=== PATIENT | female | born 1940 | race Caucasian/White ===

== ENCOUNTER 2018-09-23 13:54 | Inpatient (IN) | payer OTHER ==
--- NOTE | 2018-09-23 14:24 | PDOC ---
History of Present Illness - General Stated Complaint: WEEZING Time Seen by Provider: 09/23/18 14:24 History Source: Patient Exam Limitations: No Limitations - History of Present Illness Initial Comments: 09/23/18 14:26 78 year old woman history decubitus sacral ulcer, advanced Parkinson's disease ( bedbound) presents with cough and wheeze for 2 days. The patient had a cough noted last night by who called PCP Terrell who prescribed Levaquin for concern for PNA. Today the patient was having her sacral wound redressed by nursing aid who noted that the patient was wheezing and called EMS. At bedside patient reports feeling congested and shortness of breath when lying back. The patient has not had any fever, denies production of phlegm in cough, denies chest pain, denies nausea, vomiting, diarrhea, constipation, dysuria, hematuria. Patient has had wound vac for sacral ulcer for some time and had it removed yesterday in wound clinic at this hospital, but the wound vac has not been replaced. 09/23/18 15:11 Past History - Past Medical History Allergies/Adverse Reactions: Allergies Allergy/AdvReac Type Severity Reaction Status Date / Time codeine Allergy Intermediate Itching Verified 09/23/18 14:51 Penicillins Allergy Intermediate Rash Verified 09/23/18 14:51 Home Medications: Ambulatory Orders Carbidopa/Levodopa [Rytary ER 36.25 mg-145 mg Cap] 1 each PO QID 10/22/15 Rotigotine [Neupro] 1 each TD DAILY 10/22/15 Sennosides/Docusate Sodium [Stool Softener-Laxative Tab] 1 each PO DAILY Quetiapine Fumarate [Seroquel -] 50 mg PO HS #0 tablet 10/23/15 Cefuroxime Axetil [Ceftin -] 500 mg PO BID 09/08/18 Anemia: No Asthma: No Cancer: No Cardiac Disorders: No CVA: No COPD: No CHF: No Dementia: Yes Diabetes: No GI Disorders: No Disorders: No HTN: No Hypercholesterolemia: No Liver Disease: No Seizures: No Thyroid Disease: No - Surgical History Abdominal Surgery: Yes (ovarian tumor removed 30 years ago) Appendectomy: No Cardiac Surgery: No Cholecystectomy: No Lung Surgery: No Neurologic Surgery: No Orthopedic Surgery: Yes (shobha hip replacement 2002, broken jaw , brown arm) - Immunization History Immunization Up to Date: No - Suicide/Smoking/Psychosocial Hx Smoking History: Never smoked Number of Cigarettes Smoked Daily: 0 Hx Alcohol Use: No Drug/Substance Use Hx: No Substance Use Type: None Review of Systems - Review of Systems Able to Perform ROS?: Yes Comments:: 09/23/18 14:48 GENERAL/CONSTITUTIONAL: No fever or chills. No weakness. HEAD, EYES, EARS, NOSE AND THROAT: No change in vision. No ear pain or discharge. No sore throat. CARDIOVASCULAR: No chest pain or shortness of breath RESPIRATORY: No hemoptysis. + cough, wheeze GASTROINTESTINAL: No nausea, vomiting, diarrhea or constipation. GENITOURINARY: No dysuria, frequency, or change in urination. MUSCULOSKELETAL: No joint or muscle swelling or pain. No neck or back pain. SKIN: No rash NEUROLOGIC: No headache, vertigo, loss of consciousness, or change in strength/ sensation. ENDOCRINE: No increased thirst. No abnormal weight change HEMATOLOGIC/LYMPHATIC: No anemia, easy bleeding, or history of blood clots. ALLERGIC/IMMUNOLOGIC: No hives or skin allergy. Is the patient limited [place] proficient: No *Physical Exam - Physical Exam Comments: 09/23/18 15:32 CTAB stage 4 sacral wound ED Treatment Course - LABORATORY CBC & Chemistry Diagram: 09/23/18 15:27 09/23/18 15:27 Medical Decision Making - Medical Decision Making 09/23/18 14:45 78 year old woman history decubitus sacral ulcer, advanced Parkinson's disease presents with cough and wheeze for 2 days. The patient had a cough noted last night by who called PCP Terrell who prescribed Levaquin for concern for PNA. Today the patient was having her sacral wound redressed by nursing aid who noted that the patient was wheezing and called EMS. ED Course: consider pna vs chf vs r./o acs vs arrythmia r/o PE 09/23/18 15:07 At bedside patient bp 124/66, satting ~95 on RA 09/23/18 17:19 labs within normal CXR: cardiomegaly, coarse central changes, nodular density in the L apex, atelectasis at the L base Patient down to 92 O2 4L NC placed 09/23/18 18:08 UA w/ uti dose bactrim pending CTA to r/o PE *DC/Admit/Observation/Transfer - Referrals Referrals: Xu Oden MD [Primary Care Provider] - - Patient Instructions - Post Discharge Activity
[2018-09-23] MEDS ORDERED: ALBUTEROL SO4 2.5/IPRATROPIUM 0.5 INH SOL 3 ML VIAL.NEB. NEB ONE (15:29)
[2018-09-23 15:36] LABS: BASO % 0.4 % (0-2.0); EOS % 0.4 % (0-4.5); HEMOGLOBIN 11.5 GM/dL (10.7-15.3); LYMPH % 2.3 % (8-40); MCH 30.6 pg (25.7-33.7); MCHC 32.8 g/dl (32.0-36.0); MEAN CELL VOLUME 93.5 fl (80-96); MEAN PLT VOLUME 6.7 fl (7.5-11.1); MONO % 8.7 % (3.8-10.2); NEUT % 88.2 % (42.8-82.8); PLATELET COUNT 371 K/MM3 (134-434); RBC 3.75 M/mm3 (3.60-5.2); RDW 13.5 % (11.6-15.6); WHITE BLOOD COUNT 8.1 K/mm3 (4.0-10.0)
[2018-09-23 15:49] LABS: INR 1.28 (0.83-1.09); PROTHROMBIN TIME (PATIENT) 15.2 SEC (9.7-13.0)
[2018-09-23 15:51] LABS: ACTIVATED PTT 24.1 SECONDS (25.2-36.5)
[2018-09-23 16:23] LABS: ALK PHOS 97 U/L (45-117); ANION GAP 7 MMOL/L (8-16); BILIRUBIN,TOTAL 0.4 mg/dL (0.2-1); BLOOD UREA NITROGEN 16 mg/dL (7-18); CHLORIDE 103 mmol/L (98-107); CO2 27 mmol/L (21-32); CREATININE 0.7 mg/dL (0.55-1.3); GLUCOSE,RANDOM 94 mg/dL (74-106); N-TERMINAL BNP 1036.6 pg/ml (5-450); POTASSIUM 4.8 mmol/L (3.5-5.1); SGOT/AST 25 U/L (15-37); SGPT/ALT 6 U/L (13-61); SODIUM 137 mmol/L (136-145); TOT PROT 7.4 g/dl (6.4-8.2)
[2018-09-23 16:32] LABS: EPI CELLS 2.4 /HPF (0-5/HPF); PH,URINE 6.5 (5.0-8.0); URINE APPEARANCE TURBID; URINE BACTERIA 8239.4 /hpf (NEGATIVE); URINE BILIRUBIN NEGATIVE (NEGATIVE); URINE CASTS 64 /lpf (0-8); URINE COLOR YELLOW; URINE GLUCOSE (UA) NEGATIVE (NEGATIVE); URINE KETONE TRACE (NEGATIVE); URINE LEUK ESTERASE 3+ (NEGATIVE); URINE NITRITE POSITIVE (NEGATIVE); URINE PROTEIN TRACE (NEGATIVE); URINE WBC 428 /hpf (0-5)
[2018-09-23 17:03] LABS: URINE RBC 8.1 /hpf (0-4)
--- NOTE | 2018-09-23 17:20 | PDOC ---
Documentation entered by Bisi Sandoval SCRIBE, acting as scribe for Murali Broderick MD. Murali Broderick MD: This documentation has been prepared by the Jaime shelton Amanda, SCRIBE, under my direction and personally reviewed by me in its entirety. I confirm that the documentation accurately reflects all work, treatment, procedures, and medical decision making performed by me. Attending Attestation - Resident Resident Name: Adeola Andujar - ED Attending Attestation I have performed the following: I have examined & evaluated the patient, The case was reviewed & discussed with the resident, I agree w/resident's findings & plan, Exceptions are as noted - HPI HPI: 09/23/18 15:29 The patient is a 78 year old female with a significant medical history of decubitus sacral ulcer, advanced Parkinson's disease (bedbound) who presents to the ED with cough and wheezing for 2 days. The patient states she had a cough last night, called Dr. Oden who prescribed Levaquin for concern of possible pneumonia. The patient reports shortness of breath when lying flat. She states her cough is nonproductive. The patient denies chest pain, headache and dizziness. The patient denies fever , chills, nausea, vomit, diarrhea and constipation. The patient denies dysuria, frequency, urgency and hematuria. - Physicial Exam PE: 09/23/18 15:31 GENERAL: Awake, alert, and fully oriented, in no acute distress HEAD: No signs of trauma EYES: PERRLA, EOMI, sclera anicteric, conjunctiva clear ENT: Auricles normal inspection, hearing grossly normal, nares patent, oropharynx clear without exudates. Moist mucosa NECK: Normal ROM, supple, no lymphadenopathy, JVD, or masses LUNGS: Breath sounds equal, clear to auscultation bilaterally. No wheezes, and no crackles HEART: Regular rate and rhythm, normal S1 and S2, no murmurs, rubs or gallops ABDOMEN: Soft, nontender, normoactive bowel sounds. No guarding, no rebound. No masses EXTREMITIES: Normal range of motion, no edema. No clubbing or cyanosis. No cords, erythema, or tenderness NEUROLOGICAL: Cranial nerves II-XII intact. Normal speech, normal gait. Sensation intact in upper and lower extremities. 5/5 motor strength in upper and lower extremities. No pronator drift. Finger to nose intact. Rapid alternations intact. SKIN: (+) stage 4 sacral wound c/d/i. Warm, Dry, normal turgor, no rashes or lesions noted. - Medical Decision Making 09/23/18 15:39 Vital Signs Temp Pulse Resp BP Pulse Ox 99.3 F 90 20 94/53 L 89 L 09/23/18 14:05 09/23/18 14:05 09/23/18 14:05 09/23/18 14:05 09/23/18 14:05 A portion of this note was documented by scribe services under my direction. I have reviewed the details of the note, within reason, and agree with the documentation with the following case summary and management plan written by me. Patient treated in the ED. Nursing notes are reviewed and incorporated into the medical decision-making. Vital signs reviewed. Peripheral IV access obtained by the nurse, laboratory studies are drawn and sent, reviewed and interpreted by myself. 78 year old female with Past medical history of bilateral hip replacement, Parkinson's disease and dementia, bedbound presents with cough and wheezing and difficulty breathing since yesterday. Denies sick contacts or recent travels. Denies fevers but noted that she was having chest congestion and wheezing. The patient had called the primary care physician, Dr. Oden went prescribed levofloxacin which the patient has been taking for 2 days. However, the patient's symptoms were worsening. EMS was activated and the patient's oxygenation saturation was 89%. Over here, in the emergency department, the O2 saturation is 92%. I am concerned for pneumonia. We'll child 2 nabs. Rule out influenza. Chest x-ray, sepsis workup. The patient retook her dose of Levaquin today. We'll need to admit the patient to the hospital. 09/23/18 15:59 CBC, BMP 09/23/18 15:27 CMP Lactic Acid 1.1 mmol/L (0.4-2.0) 09/23/18 15:20 Given pt is bedbound and with normal WBC, will await for chest xray. If chest xray is unremarkable, given that patient is bedbound, we should evaluate with CTA chest to r/o PE. Either way, pt should be admitted to the hospital. 09/23/18 17:11 CMP Sodium 137 mmol/L (136-145) 09/23/18 15:27 Potassium 4.8 mmol/L (3.5-5.1) 09/23/18 15:27 Chloride 103 mmol/L (98-107) 09/23/18 15:27 Carbon Dioxide 27 mmol/L (21-32) 09/23/18 15:27 Anion Gap 7 MMOL/L (8-16) L 09/23/18 15:27 BUN 16 mg/dL (7-18) 09/23/18 15:27 Creatinine 0.7 mg/dL (0.55-1.3) 09/23/18 15:27 Creat Clearance w eGFR 81.36 (>60) 09/23/18 15:27 Random Glucose 94 mg/dL (74-106) 09/23/18 15:27 Lactic Acid 1.1 mmol/L (0.4-2.0) 09/23/18 15:20 Calcium 9.0 mg/dL (8.5-10.1) 09/23/18 15:27 Total Bilirubin 0.4 mg/dL (0.2-1) 09/23/18 15:27 AST 25 U/L (15-37) 09/23/18 15:27 ALT 6 U/L (13-61) L 09/23/18 15:27 Alkaline Phosphatase 97 U/L (45-117) 09/23/18 15:27 Troponin I < 0.02 ng/ml (0.00-0.05) 09/23/18 15:27 B-Natriuretic Peptide 1036.6 pg/ml (5-450) H 09/23/18 15:27 Total Protein 7.4 g/dl (6.4-8.2) 09/23/18 15:27 Albumin 3.0 g/dl (3.4-5.0) L 09/23/18 15:27 BNP elevated. Chest xray reviewed by me, pending official radiology read. Cardiomegaly. ?Pulm vas congestion Will obtain CTA to r/o PE, but pt should be admitted for CHF workup. Will still need to consider infectious. 09/23/18 17:12 Pt signed out to oncoming ED attending Dr. Hill for further management and disposition. Heart Score/ECG Review #1 ECG reviewed & interpreted by me at: 14:40 09/23/18 16:03 NSR 88, no std/sujit, normal axis, normal intervals, QTC 457 msec
[2018-09-23] MEDS ORDERED: SULFAMETHOXAZOLE/TRIMETHOPRIM 800MG/160MG D.S. TABLET PO SCH (18:07)
--- NOTE | 2018-09-23 19:50 | PDOC ---
*Physical Exam - Vital Signs Last Vital Signs Temp Pulse Resp BP Pulse Ox 99.3 F 63 18 120/64 98 09/23/18 14:05 09/23/18 17:33 09/23/18 17:33 09/23/18 17:33 09/23/18 17:33 - Physical Exam Comments: 09/23/18 19:51 GENERAL: Awake, alert, and fully oriented, in no acute distress HEAD: No signs of trauma, normocephalic, atraumatic EYES: PERRLA, EOMI, sclera anicteric, conjunctiva clear ENT: Auricles normal inspection, hearing grossly normal, nares patent, oropharynx clear without exudates. Moist mucosa NECK: Normal ROM, supple, no lymphadenopathy, JVD, or masses LUNGS:Coarse lung sounds throughout. Diffuse rales and Diffuse exp rhonci. speaks full sentences. HEART: Regular rate and rhythm, normal S1 and S2, no murmurs, rubs or gallops, peripheral pulses normal and equal bilaterally. ABDOMEN: Soft, nontender, normoactive bowel sounds. No guarding, no rebound. No masses BACK: + Sacral ulcer stage 4 EXTREMITIES : Normal inspection, Normal range of motion, no edema. No clubbing or cyanosis. NEUROLOGICAL: Cranial nerves II through XII grossly intact. Normal speech, normal gait, no focal sensorimotor deficits SKIN: Warm, Dry, normal turgor, no rashes or lesions noted ED Treatment Course - LABORATORY CBC & Chemistry Diagram: 09/23/18 15:27 09/23/18 15:27 - ADDITIONAL ORDERS Additional order review: Laboratory Results 09/23/18 09/23/18 09/23/18 16:10 16:10 15:27 PT with INR INR PTT (Actin FS) D-Dimer 2180 H VBG pH POC VBG pCO2 POC VBG pO2 VBG HCO3 VBG O2 Sat (Avi) VBG Base Excess Sodium 137 Potassium 4.8 Chloride 103 Carbon Dioxide 27 Anion Gap 7 L BUN 16 Creatinine 0.7 Creat Clearance w eGFR 81.36 Random Glucose 94 Lactic Acid Calcium 9.0 Total Bilirubin 0.4 AST 25 ALT 6 L Alkaline Phosphatase 97 Troponin I < 0.02 B-Natriuretic Peptide 1036.6 H Total Protein 7.4 Albumin 3.0 L Urine Color Yellow Urine Appearance Turbid Urine pH 6.5 Ur Specific [place] 1.020 Urine Protein Trace Urine Glucose (UA) Negative Urine Ketones Trace H Urine Blood Negative Urine Nitrite Positive H Urine Bilirubin Negative Urine Urobilinogen 1.0 Ur Leukocyte Esterase 3+ H Urine WBC (Auto) 428 Urine RBC (Auto) 8.1 Urine Casts (Auto) 64 U Epithel Cells (Auto) 2.4 Urine Bacteria (Auto) 8239.4 09/23/18 09/23/18 09/23/18 15:20 15:20 15:20 PT with INR 15.20 H INR 1.28 H PTT (Actin FS) 24.1 L D-Dimer VBG pH Cancelled POC VBG pCO2 Cancelled POC VBG pO2 Cancelled VBG HCO3 Cancelled VBG O2 Sat (Avi) Cancelled VBG Base Excess Cancelled Sodium Potassium Chloride Carbon Dioxide Anion Gap BUN Creatinine Creat Clearance w eGFR Random Glucose Lactic Acid 1.1 Calcium Total Bilirubin AST ALT Alkaline Phosphatase Troponin I B-Natriuretic Peptide Total Protein Albumin Urine Color Urine Appearance Urine pH Ur Specific [place] Urine Protein Urine Glucose (UA) Urine Ketones Urine Blood Urine Nitrite Urine Bilirubin Urine Urobilinogen Ur Leukocyte Esterase Urine WBC (Auto) Urine RBC (Auto) Urine Casts (Auto) U Epithel Cells (Auto) Urine Bacteria (Auto) 09/23/18 15:27 RBC 3.75 MCV 93.5 MCHC 32.8 RDW 13.5 MPV 6.7 L Neutrophils % 88.2 H Lymphocytes % 2.3 L D Monocytes % 8.7 Eosinophils % 0.4 Basophils % 0.4 - RADIOLOGY Radiology Studies Ordered: 09/23/18 20:07 [facility] Name: [facility] DEPARTMENT OF RADIOLOGY Phys: Murali Broderick MD : 1940 Age: 78 Sex: F [facility] Acct: [id number] Loc: [address] Exam Date: 09/23/18 Status[place] [facility] [place] [id number] Unit Number: [id number] EXAM#: TYPE/EXAM : RESULT: [id number] CT/CHEST CTA Chest CT angiography Clinical information given : evaluate for pulmonary embolism Multiplanar imaging was performed following the intravenous bolus administration of nonionic contrast. No prior CT studies are available at this facility for direct comparison. No definite pulmonary embolus is noted. Evaluation of the bilateral lower lobe subsegmental vessels is limited due to respiratory motion artifact. An approximately 10 x 2.3 x 0.5 cm mildly hyperdense focus is seen abutting the left posterolateral border of the descending aorta suggestive of an intramural hematoma. No intimal flap or aortic lumen compromise is seen. No aortic aneurysm is seen There is no definite cardiac enlargement. A small pericardial effusion is noted. No evidence of pneumothorax, infiltrate or pleural effusion. There is mild bilateral lower lobe discoid atelectasis with mild subpleural atelectasis posteriorly. The visualized osseous structures demonstrate no gross acute pathology. No obvious endobronchial pathology is visualized. Impression: No definite CT evidence of pulmonary embolism. Evaluation of the lower lobe subsegmental vessels bilaterally is limited due to motion artifact. If clinically indicated correlate with bilateral lower extremity venous sonography. An approximately 10 x 2.3 x 0.5 cm mildly hyperdense crescentic focus is seen abutting the left posterior lateral border of the descending aorta suggestive of an intramural hematoma. Mild bilateral lower lobe discoid atelectasis. Mild bibasilar subpleural atelectasis posteriorly. Reported By: Cirilo Naqvi MD 09/23/181954 Murali Broderick Technologist: Antonio Keys Transcribed Date/Time: 09/23/181954 Barrel Inspector Tight: Cirilo Naqvi Printed Date/Time: By: - Medications Given in the ED: ED Medications Discontinued Medications Generic Name Dose Route Start Last Admin Trade Name Freq PRN Reason Stop Dose Admin Albuterol/Ipratropium 1 amp 09/23/18 15:29 09/23/18 15:35 Duoneb - NEB 09/23/18 15:30 1 amp ONCE ONE Administration Medical Decision Making - Medical Decision Making 09/23/18 19:44 78 yo F with h/o decubitus sacral ulcer, Wound vac for sacral ulcer for extended period of time and removed 09/23/18 in wound clinic at [facility], advanced Parkinson's disease (bedbound BIBEMS with cough and wheeze x 2 days. Received signout from Dr. Andujar. Patient on Levaquin for presumed PNA x 2 days. Noted to be hypoxic by EMS to 80% O2 RA. BP 94/53. Patient reports orthopnea. Physical exam coarse lung sounds throughout. Diffuse rales and Diffuse exp rhonci, received duonebs. ED course also notable for 92 % O2 4 L NC, vitals wnl , AF, CXR with cardiomegaly and coarse central changes with nodular density in L apex. Pending CTA r/o PE. Patient with elevated BNP, hypoxic, SOB. Plan to admit CHF exacerbation. 09/23/18 20:05 ED Course: Laboratory Tests 09/23/18 09/23/18 09/23/18 15:20 15:27 15:27 WBC 8.1 Hgb 11.5 Hct 35.0 Plt Count 371 BUN 16 Creatinine 0.7 Lactic Acid 1.1 Troponin I < 0.02 B-Natriuretic Peptide 1036.6 H Urine Color Urine Ketones Urine Nitrite Ur Leukocyte Esterase Urine WBC (Auto) Urine RBC (Auto) Urine Bacteria (Auto) Influenza A (Rapid) Influenza B (Rapid) 09/23/18 09/23/18 16:10 16:10 WBC Hgb Hct Plt Count BUN Creatinine Lactic Acid Troponin I B-Natriuretic Peptide Urine Color Yellow Urine Ketones Trace H Urine Nitrite Positive H Ur Leukocyte Esterase 3+ H Urine WBC (Auto) 428 Urine RBC (Auto) 8.1 Urine Bacteria (Auto) 8239.4 Influenza A (Rapid) Negative Influenza B (Rapid) Negative 09/23/18 20:08 CTA chest: Impression: No definite CT evidence of pulmonary embolism. Evaluation of the lower lobe subsegmental vessels bilaterally is limited due to motion artifact. If clinically indicated correlate with bilateral lower extremity venous sonography. An approximately 10 x 2.3 x 0.5 cm mildly hyperdense crescentic focus is seen abutting the left posterior lateral border of the descending aorta suggestive of an intramural hematoma. Mild bilateral lower lobe discoid atelectasis. Mild bibasilar subpleural atelectasis posteriorly 09/23/18 20:08 Patient refused bactrim 09/23/18 20:[address] Karen Murray Methylpred Admit tele/obs *DC/Admit/Observation/Transfer Diagnosis at time of Disposition: Hypoxia, SOB (shortness of breath) CHF exacerbation Qualifiers: Heart failure type: unspecified Qualified Code(s): I50.9 - Heart failure, unspecified - Discharge Dispostion Condition at time of disposition: Stable Decision to Admit order: Yes - Referrals - Patient Instructions - Post Discharge Activity
[2018-09-23] MEDS ORDERED: SULFAMETHOXAZOLE/TRIMETHOPRIM 800MG/160MG D.S. TABLET ONE (19:52)
[2018-09-23] MEDS ORDERED: methylPREDNISolone NA SUCC 125 MG/2 ML VIAL IVPUSH ONE (20:30)
[2018-09-23] MEDS ORDERED: FUROSEMIDE 40 MG/4 ML INJECTABLE VIAL IVPUSH ONE (20:30)
[2018-09-23] MEDS ORDERED: FUROSEMIDE 40 MG/4 ML INJECTABLE VIAL ONE (21:09)
[2018-09-23] MEDS ORDERED: methylPREDNISolone NA SUCC 125 MG/2 ML VIAL ONE (21:09)
--- NOTE | 2018-09-23 21:34 | HP ---
CHIEF COMPLAINT: shortness of breath PCP: Zaida HISTORY OF PRESENT ILLNESS: 78 year old woman history decubitus sacral ulcer, advanced Parkinson's disease ( bedbound) presents with cough and wheeze for 2 days. The patient had a cough noted last night by who called PCP Zaida who prescribed Levaquin for concern for PNA, found to have wheezing by visiting nurse, sent in to hospital for evaluation. ER course was notable for: (1) Chest CT (2) duonebs (3) prednisone Recent Travel: no PAST MEDICAL HISTORY: decubitus sacral ulcer, advanced Parkinson's disease ( bedbound) PAST SURGICAL HISTORY: no Social History: Smoking: former smoker Alcohol: no Drugs: no Family History: Allergies codeine Allergy (Intermediate, Verified 09/23/18 14:51) Itching Penicillins Allergy (Intermediate, Verified 09/23/18 14:51) Rash HOME MEDICATIONS: Home Medications Medication Instructions Recorded Carbidopa/Levodopa [Rytary ER 1 each PO QID 10/22/15 36.25 mg-145 mg Cap] Rotigotine [Neupro] 1 each TD DAILY 10/22/15 Sennosides/Docusate Sodium [Stool 1 each PO DAILY 10/22/15 Softener-Laxative Tab] Cefuroxime Axetil [Ceftin -] 500 mg PO BID 09/08/18 Quetiapine Fumarate [Seroquel -] 25 mg PO TID 09/23/18 REVIEW OF SYSTEMS CONSTITUTIONAL: Absent: fever, chills, diaphoresis, generalized weakness, malaise, loss of appetite, weight change HEENT: Absent: rhinorrhea, nasal congestion, throat pain, throat swelling, difficulty swallowing, mouth swelling, ear pain, eye pain, visual changes CARDIOVASCULAR: Absent: chest pain, syncope, palpitations, irregular heart rate, lightheadedness , peripheral edema RESPIRATORY: Absent: cough, dyspnea with exertion, orthopnea, wheezing, stridor, hemoptysis present - shortness of breath, GASTROINTESTINAL: Absent: abdominal pain, abdominal distension, nausea, vomiting, diarrhea, constipation, melena, hematochezia GENITOURINARY: Absent: dysuria, frequency, urgency, hesitancy, hematuria, flank pain, genital pain MUSCULOSKELETAL: Absent: myalgia, arthralgia, joint swelling, back pain, neck pain SKIN: Absent: rash, itching, pallor HEMATOLOGIC/IMMUNOLOGIC: Absent: easy bleeding, easy bruising, lymphadenopathy, frequent infections ENDOCRINE: Absent: unexplained weight gain, unexplained weight loss, heat intolerance, cold intolerance NEUROLOGIC: Absent: headache, focal weakness or paresthesias, dizziness, unsteady gait, seizure, mental status changes, bladder or bowel incontinence PSYCHIATRIC: Absent: anxiety, depression, suicidal or homicidal ideation, hallucinations. PHYSICAL EXAMINATION Vital Signs - 24 hr 09/23/18 09/23/18 09/23/18 14:05 15:06 15:31 Temperature 99.3 F Pulse Rate 90 Pulse Rate [ 87 76 Left Radial] Respiratory 20 20 20 Rate Blood Pressure 94/53 L Blood Pressure 124/66 108/69 [Right Arm] O2 Sat by Pulse 89 L 98 98 Oximetry (%) 09/23/18 09/23/18 16:41 17:33 Temperature Pulse Rate Pulse Rate [ 63 63 Left Radial] Respiratory 20 18 Rate Blood Pressure Blood Pressure 121/61 120/64 [Right Arm] O2 Sat by Pulse 98 98 Oximetry (%) GENERAL: Awake, alert, disoriented HEAD: Normal with no signs of trauma. EYES: Pupils equal, round and reactive to light, extraocular movements intact, sclera anicteric, conjunctiva clear. No lid lag. EARS, NOSE, THROAT: Ears normal, nares patent, oropharynx clear without exudates. Moist mucous membranes. NECK: Normal range of motion, supple without lymphadenopathy, JVD, or masses. LUNGS: some coarse breaths sounds b/l, no wheezing appreciated HEART: Regular rate and rhythm, normal S1 and S2 without murmur, rub or gallop. ABDOMEN: Soft, nontender, not distended, normoactive bowel sounds, no guarding, no rebound, no masses. No hepatomegaly or splenomegaly. MUSCULOSKELETAL: Normal range of motion at all joints. No bony deformities or tenderness. No CVA tenderness. UPPER EXTREMITIES: 2+ pulses, warm, well-perfused. No cyanosis. No clubbing. No peripheral edema. LOWER EXTREMITIES: 2+ pulses, warm, well-perfused. No calf tenderness. No peripheral edema. NEUROLOGICAL: Cranial nerves II-XII intact. dementia, bed bound PSYCHIATRIC: dementia SKIN: Warm, dry, normal turgor, no rashes stage 4 sacral decubitus ulcer Laboratory Results - last 24 hr 09/23/18 09/23/18 09/23/18 15:20 15:20 15:20 WBC RBC Hgb Hct MCV MCH MCHC RDW Plt Count MPV Absolute Neuts (auto) Neutrophils % Lymphocytes % Monocytes % Eosinophils % Basophils % Nucleated RBC % PT with INR 15.20 H INR 1.28 H PTT (Actin FS) 24.1 L D-Dimer VBG pH Cancelled POC VBG pCO2 Cancelled POC VBG pO2 Cancelled VBG HCO3 Cancelled VBG O2 Sat (Avi) Cancelled VBG Base Excess Cancelled Sodium Potassium Chloride Carbon Dioxide Anion Gap BUN Creatinine Creat Clearance w eGFR Random Glucose Lactic Acid 1.1 Calcium Total Bilirubin AST ALT Alkaline Phosphatase Troponin I B-Natriuretic Peptide Total Protein Albumin Urine Color Urine Appearance Urine pH Ur Specific [place] Urine Protein Urine Glucose (UA) Urine Ketones Urine Blood Urine Nitrite Urine Bilirubin Urine Urobilinogen Ur Leukocyte Esterase Urine WBC (Auto) Urine RBC (Auto) Urine Casts (Auto) U Epithel Cells (Auto) Urine Bacteria (Auto) Influenza A (Rapid) Influenza B (Rapid) 09/23/18 09/23/18 09/23/18 15:27 15:27 16:10 WBC 8.1 RBC 3.75 Hgb 11.5 Hct 35.0 MCV 93.5 MCH 30.6 MCHC 32.8 RDW 13.5 Plt Count 371 MPV 6.7 L Absolute Neuts (auto) 7.1 Neutrophils % 88.2 H Lymphocytes % 2.3 L D Monocytes % 8.7 Eosinophils % 0.4 Basophils % 0.4 Nucleated RBC % 0 PT with INR INR PTT (Actin FS) D-Dimer VBG pH POC VBG pCO2 POC VBG pO2 VBG HCO3 VBG O2 Sat (Avi) VBG Base Excess Sodium 137 Potassium 4.8 Chloride 103 Carbon Dioxide 27 Anion Gap 7 L BUN 16 Creatinine 0.7 Creat Clearance w eGFR 81.36 Random Glucose 94 Lactic Acid Calcium 9.0 Total Bilirubin 0.4 AST 25 ALT 6 L Alkaline Phosphatase 97 Troponin I < 0.02 B-Natriuretic Peptide 1036.6 H Total Protein 7.4 Albumin 3.0 L Urine Color Yellow Urine Appearance Turbid Urine pH 6.5 Ur Specific [place] 1.020 Urine Protein Trace Urine Glucose (UA) Negative Urine Ketones Trace H Urine Blood Negative Urine Nitrite Positive H Urine Bilirubin Negative Urine Urobilinogen 1.0 Ur Leukocyte Esterase 3+ H Urine WBC (Auto) 428 Urine RBC (Auto) 8.1 Urine Casts (Auto) 64 U Epithel Cells (Auto) 2.4 Urine Bacteria (Auto) 8239.4 Influenza A (Rapid) Influenza B (Rapid) 09/23/18 09/23/18 16:10 16:10 WBC RBC Hgb Hct MCV MCH MCHC RDW Plt Count MPV Absolute Neuts (auto) Neutrophils % Lymphocytes % Monocytes % Eosinophils % Basophils % Nucleated RBC % PT with INR INR PTT (Actin FS) D-Dimer 2180 H VBG pH POC VBG pCO2 POC VBG pO2 VBG HCO3 VBG O2 Sat (Avi) VBG Base Excess Sodium Potassium Chloride Carbon Dioxide Anion Gap BUN Creatinine Creat Clearance w eGFR Random Glucose Lactic Acid Calcium Total Bilirubin AST ALT Alkaline Phosphatase Troponin I B-Natriuretic Peptide Total Protein Albumin Urine Color Urine Appearance Urine pH Ur Specific [place] Urine Protein Urine Glucose (UA) Urine Ketones Urine Blood Urine Nitrite Urine Bilirubin Urine Urobilinogen Ur Leukocyte Esterase Urine WBC (Auto) Urine RBC (Auto) Urine Casts (Auto) U Epithel Cells (Auto) Urine Bacteria (Auto) Influenza A (Rapid) Negative Influenza B (Rapid) Negative imaging studies reviewed ASSESSMENT/PLAN: #Shortness of breath - may be secondary to CHF exacerbation vs reactive airway disease. No lung infiltrates on chest CT, no evidence of PE. Pulmonary vasculature appears congested, elevated BNP c/w CHF exacerbation. -tele-obs -lasix 40mg IV daily -i/o -daily weights -fluid restriction -bblocker -acei -echo -cardiology evaluation #Parkinson disease -c/w home dose carbidopa/levadopa -bed rest #Sacral decubitus ulcer -local wound care -consult - dr lo #DVT ppx -heparin sc Visit type - Emergency Visit Emergency Visit: Yes ED Registration Date: 09/23/18 Care time: The patient presented to the Emergency Department on the above date and was hospitalized for further evaluation of their emergent condition. - New Patient This patient is new to me today: Yes Date on this admission: 09/23/18 - Critical Care Critical Care patient: No
[2018-09-23] MEDS ORDERED: HEPARIN NA (PORCINE) 5,000 UNITS/ML 1ML VIAL ONE (22:59)
[2018-09-23] MEDS ORDERED: METOPROLOL TARTRATE 25 MG TABLET (FP) ONE (22:59)
[2018-09-23] MEDS: METOPROLOL TARTRATE 25 MG TABLET (FP) PO SCH (23:09)
[2018-09-23] MEDS: HEPARIN NA (PORCINE) 5,000 UNITS/ML 1ML VIAL SQ SCH (23:09)
[2018-09-23] MEDS: QUEtiapine FUMARATE 25 MG TABLET (FP) PO SCH (23:09)
[2018-09-24 06:25] LABS: BASO % 0.3 % (0-2.0); HEMATOCRIT 34.3 % (32.4-45.2); HEMOGLOBIN 11.6 GM/dL (10.7-15.3); LYMPH % 9.2 % (8-40); MCH 30.7 pg (25.7-33.7); MCHC 33.8 g/dl (32.0-36.0); MEAN CELL VOLUME 90.9 fl (80-96); MEAN PLT VOLUME 6.6 fl (7.5-11.1); MONO % 3.3 % (3.8-10.2); NEUT % 87.2 % (42.8-82.8); PLATELET COUNT 352 K/MM3 (134-434); RBC 3.78 M/mm3 (3.60-5.2); RDW 13.6 % (11.6-15.6); WHITE BLOOD COUNT 2.7 K/mm3 (4.0-10.0)
[2018-09-24] MEDS: QUEtiapine FUMARATE 25 MG TABLET (FP) PO SCH ×3 (06:39→21:56)
[2018-09-24] MEDS ORDERED: ALBUTEROL SO4 2.5/IPRATROPIUM 0.5 INH SOL 3 ML VIAL.NEB. NEB SCH (08:00)
[2018-09-24 08:03] LABS: ANION GAP 9 MMOL/L (8-16); BLOOD UREA NITROGEN 14 mg/dL (7-18); CHLORIDE 102 mmol/L (98-107); CO2 27 mmol/L (21-32); CREATININE 0.6 mg/dL (0.55-1.3); GLUCOSE,RANDOM 133 mg/dL (74-106); POTASSIUM 4.1 mmol/L (3.5-5.1); SODIUM 139 mmol/L (136-145)
--- NOTE | 2018-09-24 08:56 | CONSULT ---
- Consultation REQUESTING PROVIDER: CONSULT REQUEST: We have been asked to surgically evaluate this patient for ( sacral ulcer). PCP:Alex Tabor HISTORY OF PRESENT ILLNESS: 78 y/o F w/ PMHx decubitus sacral ulcer, advanced Parkinson's disease (bedbound ) a/w presents with cough and wheezing. Per Rn pt has had wound vac therapy at home for the sacral ulcer. Wound vac dressing removed by ER staff. PMHx: as above PSHx: unknown Home Medications Medication Instructions Recorded Carbidopa/Levodopa [Rytary ER 1 each PO QID 10/22/15 36.25 mg-145 mg Cap] Rotigotine [Neupro] 1 each TD DAILY 10/22/15 Sennosides/Docusate Sodium [Stool 1 each PO DAILY 10/22/15 Softener-Laxative Tab] Cefuroxime Axetil [Ceftin -] 500 mg PO BID 09/08/18 Quetiapine Fumarate [Seroquel -] 25 mg PO TID 09/23/18 Allergies Allergy/AdvReac Type Severity Reaction Status Date / Time codeine Allergy Intermediate Itching Verified 09/23/18 14:51 Penicillins Allergy Intermediate Rash Verified 09/23/18 14:51 REVIEW OF SYSTEMS: pt nonverbal PHYSICAL EXAM: GENERAL: Awake, alert, and fully oriented, in no acute distress. HEAD: Normal with no signs of trauma. Back: Lower back with 5x3x3.5 cm sacral ulcer just above gluteal cleft, approx 2cm on undermining on the left lateral side. Ulcer clean based with scant fibrinous exudate centrally. No erythema. Scant drainage. Skin intact circumferentially. Vital Signs Temperature 97.7 F 09/24/18 08:43 Pulse Rate 42 L 09/24/18 08:43 Respiratory Rate 18 09/24/18 08:43 Blood Pressure 107/53 L 09/24/18 08:43 O2 Sat by Pulse Oximetry (%) 95 09/24/18 08:37 Lab Results WBC 2.7 K/mm3 (4.0-10.0) L 09/24/18 05:30 RBC 3.78 M/mm3 (3.60-5.2) 09/24/18 05:30 Hgb 11.6 GM/dL (10.7-15.3) 09/24/18 05:30 Hct 34.3 % (32.4-45.2) 09/24/18 05:30 MCV 90.9 fl (80-96) 09/24/18 05:30 MCHC 33.8 g/dl (32.0-36.0) 09/24/18 05:30 RDW 13.6 % (11.6-15.6) 09/24/18 05:30 Plt Count 352 K/MM3 (134-434) 09/24/18 05:30 Sodium 139 mmol/L (136-145) 09/24/18 05:30 Potassium 4.1 mmol/L (3.5-5.1) 09/24/18 05:30 Chloride 102 mmol/L (98-107) 09/24/18 05:30 Carbon Dioxide 27 mmol/L (21-32) 09/24/18 05:30 Anion Gap 9 MMOL/L (8-16) 09/24/18 05:30 BUN 14 mg/dL (7-18) 09/24/18 05:30 Creatinine 0.6 mg/dL (0.55-1.3) 09/24/18 05:30 Random Glucose 133 mg/dL (74-106) H 09/24/18 05:30 Calcium 9.0 mg/dL (8.5-10.1) 09/24/18 05:30 INR 1.28 (0.83-1.09) H 09/23/18 15:20 A/P: 78 y/o F w/ PMHx decubitus sacral ulcer, advanced Parkinson's disease ( bedbound) a/w presents with cough and wheezing. Sacral ulcer, appears to be healing/yossi well with use of wound vac -Wound vac orders placed -Apply wound vac and set to 125mmHG -Reposition every two hours while in bed -Air mattress recommended -Use drawsheets and Trendelenburg when repositioning to reduce friction and shear -Manageincontinence via timely cleansing, use of appropriate incontinence disposables and use of barrier ointment to intact skin -Ensure adequate hydration/nutrition, supplementation per primary team -Ensure off-loading to all bony areas (heels, ankles, hips and tailbone) with Allevyn/Optifoam d/w attending Dr Lopez
[2018-09-24] MEDS ORDERED: PATIENT'S OWN MEDICATION (NON-FORMULARY) (Rotigotine [Neupro] 1 EACH) TD SCH (10:00)
[2018-09-24] MEDS ORDERED: predniSONE 20 MG TABLET (UD) PO SCH (10:00)
[2018-09-24] MEDS: SENNOSIDES/DOCUSATE COMBO (SENNA PLUS) TABLET (UD) PO SCH (10:39)
[2018-09-24] MEDS: METOPROLOL TARTRATE 25 MG TABLET (FP) PO SCH (10:39)
[2018-09-24] MEDS: LISINOPRIL 5 MG TABLET (FP) PO SCH (10:39)
[2018-09-24] MEDS: HEPARIN NA (PORCINE) 5,000 UNITS/ML 1ML VIAL SQ SCH ×2 (10:40→22:01)
--- NOTE | 2018-09-24 10:48 | EKG ---
Test Reason : Blood Pressure : / mmHG Vent. Rate : 088 BPM Atrial Rate : 088 BPM P-R Int : 166 ms QRS Dur : 088 ms QT Int : 378 ms P-R-T Axes : 022 -09 024 degrees QTc Int : 457 ms POOR DATA QUALITY, INTERPRETATION MAY BE ADVERSELY AFFECTED NORMAL SINUS RHYTHM NONSPECIFIC ST AND T WAVE ABNORMALITY WHEN COMPARED WITH ECG OF 22-OCT-2015 10:10, NO SIGNIFICANT CHANGE WAS FOUND Confirmed by MACARIO KENNEDY MD ([id number]) on 09/24/2018 10:48:23 AM Referred By: Confirmed By:MACARIO KENNEDY MD
--- NOTE | 2018-09-24 11:18 | PN ---
Progress Note (short form) - Note Progress Note: Pt seen/ examined chart reviewed awake/ comfortable family at bedside-- just did echo Vital Signs Temp 97.7 F 09/24/18 08:43 Pulse 42 L 09/24/18 08:43 Resp 18 09/24/18 08:43 BP 107/53 L 09/24/18 08:43 Pulse Ox 95 09/24/18 08:37 Intake & Output 09/23/18 09/23/18 09/24/18 11:59 23:59 11:59 Intake Total 10 Balance 10 Weight 140 lb 136 lb 4.8 oz Intake: IV 10 SALINE LOCK 10 Oral 0 Other: Voiding Method Incontinent # Unmeasured Voids Void 1 Height 5 ft 6 in 5 ft 6 in Body Mass Index (BMI) 22.6 21.9 Weight Measurement Method Built in [facility] Weight Measurement Method Est/Stated by Patient Active Medications Lisinopril (Prinivil) 5 mg PO DAILY [facility] Last Admin: 09/24/18 10:39 Dose: 5 mg Metoprolol Tartrate (Lopressor -) 25 mg PO BID [facility] Last Admin: 09/24/18 10:39 Dose: 25 mg Non-Formulary Medication (Carbidopa/Levodopa [Rytary Er 36.25 Mg-145 Mg Cap]) 1 each PO QID [facility] Non-Formulary Medication (Rotigotine [Neupro]) 1 each TD DAILY [facility] Quetiapine Fumarate (Seroquel -) 25 mg PO TID [facility] Last Admin: 09/24/18 06:39 Dose: Not Given Senna/Docusate Sodium (Pericolace -) 1 tablet PO DAILY [facility] Last Admin: 09/24/18 10:39 Dose: 1 tablet CBC, BMP 09/24/18 05:30 09/24/18 05:30 cta / cxr reviewed-- Incidental finding of desc aorta hematoma Physical Exam S1 S2 RRR Lungs - diminished at bases abd- soft ext- no edema neuro- awake sacral decubitus PLAN stable continue present care scd stockings discussed with Dr. Torres and Dr Lopez Per Dr. Lopez - nothing ishan to be done -- can have heparin s/q will review echo cardiology to follow decubitus care will follow Problem List - Problems (1) Sacral decubitus ulcer, stage IV Code(s): L89.154 - PRESSURE ULCER OF SACRAL REGION, STAGE 4 (2) Cough Code(s): R05 - COUGH (3) SOB (shortness of breath) Code(s): R06.02 - SHORTNESS OF BREATH (4) Parkinson's disease Code(s): G20 - PARKINSON'S DISEASE
[2018-09-24] MEDS: PATIENT'S OWN MEDICATION (NON-FORMULARY) (Carbidopa/Levodopa [Rytary Er 36.25 Mg-145 Mg Ca PO SCH ×4 (12:27→21:56)
--- NOTE | 2018-09-24 12:55 | CON.PULM ---
Consult Consult Specialty:: PULMONARY Referred by:: VIKI Reason for Consultation:: COUGH/SOB - History of Present Illness Chief Complaint: COUGH/WHEEZE/SOB History of Present Illness: 78 year old woman history decubitus sacral ulcer, advanced Parkinson's disease , predominantly bedbound, presents with cough and wheeze for 2 days. The patient had a cough noted last night by who called PCP Terrell who prescribed Levaquin for concern for PNA. Today the patient was having her sacral wound redressed by nursing aid who noted that the patient was wheezing and called EMS. At bedside patient reports feeling congested and shortness of breath when lying back. The patient has not had any fever, denies production of phlegm in cough, denies chest pain, denies nausea, vomiting, diarrhea, constipation, dysuria, hematuria.Patient has had wound vac for sacral ulcer for some time and had it removed yesterday in wound clinic at this hospital, but the wound vac has not been replaced. 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 Cardio/Vascular: No: AFIB Pulmonary: No: O2 Dependent Gastrointestinal: No: Ascites Hepatobiliary: No: Cirrhosis Renal/: No: Renal Failure Reproductive: Yes: Postmenopausal ...: No Heme/Onc: Yes: Anemia Psych: No: Addictions - Alcohol/Substance Use Hx Alcohol Use: No - Smoking History Smoking history: Never smoked Have you smoked in the past 12 months: No Aproximately how many cigarettes per day: 0 Home Medications - Allergies Allergies/Adverse Reactions: Allergies Allergy/AdvReac Type Severity Reaction Status Date / Time codeine Allergy Intermediate Itching Verified 09/23/18 14:51 Penicillins Allergy Intermediate Rash Verified 09/23/18 14:51 - Home Medications Home Medications: Ambulatory Orders Carbidopa/Levodopa [Rytary ER 36.25 mg-145 mg Cap] 1 each PO QID 10/22/15 Rotigotine [Neupro] 1 each TD DAILY 10/22/15 Sennosides/Docusate Sodium [Stool Softener-Laxative Tab] 1 each PO DAILY Cefuroxime Axetil [Ceftin -] 500 mg PO BID 09/08/18 Quetiapine Fumarate [Seroquel -] 25 mg PO TID 09/23/18 Family Disease History - Family Disease History Family History: Unable to Obtain Review of Systems Unable to obtain ROS, reason: unable to obtain Physical Exam Vital Sings: Vital Signs Temperature 97.7 F 09/24/18 08:43 Pulse Rate 42 L 09/24/18 08:43 Respiratory Rate 18 09/24/18 08:43 Blood Pressure 107/53 L 09/24/18 08:43 O2 Sat by Pulse Oximetry (%) 95 09/24/18 08:37 Constitutional: Yes: Anxious Eyes: Yes: Conjunctiva Clear HENT: Yes: Normocephalic Neck: Yes: Trachea Midline Cardiovascular: Yes: Regular Rate and Rhythm, S1, S2 Respiratory: Yes: Poor Air Entry, Rales, Rhonchi Gastrointestinal: Yes: Normal Bowel Sounds, Soft Musculoskeletal: Yes: Muscle Weakness Edema: No Neurological: Yes: Oriented, Pre-Existing Deficit Labs: CBC, BMP 09/24/18 05:30 09/24/18 05:30 rest of labs reviewed Imaging - Results Chest X-ray: Report Reviewed, Image Reviewed Cat Scan: Report Reviewed, Image Reviewed Problem List - Problems (1) Aspiration into lower respiratory tract Code(s): T17.800A - UNSP FOREIGN BODY IN OTH PRT RESP TRACT CAUSING ASPHYX, INIT (2) Cough Code(s): R05 - COUGH (3) Hypoxia Code(s): R09.02 - HYPOXEMIA (4) SOB (shortness of breath) Code(s): R06.02 - SHORTNESS OF BREATH (5) Sacral decubitus ulcer, stage IV Code(s): L89.154 - PRESSURE ULCER OF SACRAL REGION, STAGE 4 (6) Parkinson's disease Code(s): G20 - PARKINSON'S DISEASE Assessment/Plan GIVEN ADVANCED STAGE OF PARKINSONS AND UNDERLYING DEBILITATION CHRONIC ASPIRATION WOULD BE OF CONCERN DENIES PRIOR SWALLOWING STUDY PATIENT IS UNDER CARE OF DR DELGADO/DR BULLARD WILL ORDER SWALLOW EVAL WITH CHE [facility]M AND NEURO F/U WITH DR DELGADO ASPIRATION PRECAUTIONS/SUPPLEMENTAL O2 NEEDED INCIDENTAL FINDING OF DESCENDING AORTIC HEMATOMA IS OF LITTLE CONCERN PER VASCULAR WILL FOLLOW THANK YOU. Trenton DAVALOS MD
--- NOTE | 2018-09-24 13:17 | ECHO ---
Name: MICHELLE CACERES Exam:Adult Echocardiogram Study Date: 09/24/2018 10:23 AM Age: 78 yrs Reason For Study: EVALUATE FOR SYSTOLIC DYSFUNCTION Height: 66 in Weight: 140 lb BSA: 1.7 m2 MMode/2D Measurements & Calculations IVSd: 0.90 cm Ao root diam: 3.7 cm LVIDd: 4.5 cm LA dimension: 3.5 cm LVIDs: 2.8 cm LVPWd: 0.75 cm EDV(Teich): 93.0 ml LVOT diam: 2.3 cm ESV(Teich): 30.3 ml Doppler Measurements & Calculations MV E max gerson: 39.7 cm/sec Ao V2 max: 103.8 cm/sec MV A max gerson: 59.8 cm/sec Ao max P.3 mmHg MV E/A: 0.66 Ao V2 mean: 67.3 cm/sec Ao mean P.0 mmHg Ao V2 VTI: 22.7 cm MICHELLE(I,D): 3.8 cm2 AI P1/2t: 486.3 msec MICHELLE(V,D): 3.3 cm2 AI max gerson: 181.6 cm/sec LV V1 max P.6 mmHg AI max P.2 mmHg LV V1 mean P.6 mmHg AI dec slope: 109.4 cm/sec2 LV V1 max: 80.2 cm/sec LV V1 mean: 60.9 cm/sec LV V1 VTI: 20.4 cm SV(LVOT): 86.3 ml TR max gerson: 189.5 cm/sec TR max P.4 mmHg Med Peak E' Gerson: 3.3 cm/sec Med E/e': 12.1 Lat Peak E' Gerson: 5.8 cm/sec Lat E/e': 6.8 Left Ventricle Left ventricular systolic function is grossly normal. Ejection Fraction = 50-55%. Right Ventricle The right ventricle is grossly normal size. The right ventricular systolic function is grossly normal . Atria Normal left and right atrial size and function. Mitral Valve The mitral valve is normal in structure and function. There is no mitral valve stenosis. There is mil d mitral regurgitation. Tricuspid Valve The tricuspid valve is normal in structure and function. There is mild tricuspid regurgitation. Aortic Valve The aortic valve opens well. No hemodynamically significant valvular aortic stenosis. Mild aortic regurgitation. Pulmonic Valve The pulmonic valve is not well seen, but is grossly normal. There is no pulmonic valvular stenosis. T here is no pulmonic valvular regurgitation. Great Vessels Borderline aortic root dilatation. Mildly dilated ascending aorta. Pericardium/Pleura There is no pericardial effusion. Interpretation Summary Left ventricular systolic function is grossly normal. Ejection Fraction = 50-55%. There is mild mitral regurgitation. There is mild tricuspid regurgitation. Mild aortic regurgitation. Borderline aortic root dilatation. Mildly dilated ascending aorta. There is no pericardial effusion. MD Giordano *Bryan 09/24/2018 01:17 PM
--- NOTE | 2018-09-24 15:32 | CON.CARD ---
Consult Consult Specialty:: Cardiology Reason for Consultation:: Dyspnea - History of Present Illness History of Present Illness: 78 year old woman history decubitus sacral ulcer, advanced Parkinson's disease , predominantly bedbound, presents with cough and wheeze . The patient had a cough noted last night by . There is no prior history of CAD, CHF or arrhythmia. No reports of chest pain or palpitations. The patient has not had any fever, denies production of phlegm in cough. CXR and CT sscan does not show infiltrate or edema An echocardiogram showed normal LV function without valvular pathology. 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 Cardio/Vascular: No: AFIB Pulmonary: No: O2 Dependent Gastrointestinal: No: Ascites Hepatobiliary: No: Cirrhosis Renal/: No: Renal Failure ...: No Psych: No: Addictions - Alcohol/Substance Use Hx Alcohol Use: No - Smoking History Smoking history: Never smoked Have you smoked in the past 12 months: No Aproximately how many cigarettes per day: 0 Home Medications - Allergies Allergies/Adverse Reactions: Allergies Allergy/AdvReac Type Severity Reaction Status Date / Time codeine Allergy Intermediate Itching Verified 09/23/18 14:51 Penicillins Allergy Intermediate Rash Verified 09/23/18 14:51 - Home Medications Home Medications: Ambulatory Orders Carbidopa/Levodopa [Rytary ER 36.25 mg-145 mg Cap] 1 each PO QID 10/22/15 Rotigotine [Neupro] 1 each TD DAILY 10/22/15 Sennosides/Docusate Sodium [Stool Softener-Laxative Tab] 1 each PO DAILY Cefuroxime Axetil [Ceftin -] 500 mg PO BID 09/08/18 Quetiapine Fumarate [Seroquel -] 25 mg PO TID 09/23/18 Review of Systems Unable to obtain ROS, reason: Dementia Vital Signs: Vital Signs Temperature 97.7 F 09/24/18 13:00 Pulse Rate 50 L 09/24/18 13:00 Respiratory Rate 18 09/24/18 13:00 Blood Pressure 98/52 L 09/24/18 13:00 O2 Sat by Pulse Oximetry (%) 95 09/24/18 13:00 Constitutional: Yes: No Distress, Calm, Cachectic Eyes: Yes: Conjunctiva Clear, EOM Intact HENT: Yes: Atraumatic, Normocephalic Neck: Yes: Supple, Trachea Midline Respiratory: Yes: Regular. No: CTA Bilaterally (poor effort. Upper airway sounds.) Gastrointestinal: Yes: Normal Bowel Sounds Cardiovascular: Yes: Regular Rate and Rhythm, Bradycardia JVD: No Carotid Bruit: No PMI: Non-Displaced Heart Sounds: Yes: S1, S2 Murmur: No: Systolic Murmur, Diastolic Murmur Edema: No - Other Data Labs, Other Data: CBC, BMP 09/24/18 05:30 09/24/18 05:30 INR, PTT INR 1.28 (0.83-1.09) H 09/23/18 15:20 Troponin, BNP 09/23/18 15:27 Troponin I < 0.02 B-Natriuretic Peptide 1036.6 H Troponin, BNP 09/23/18 15:27 Troponin I < 0.02 B-Natriuretic Peptide 1036.6 H Echo: Report Reviewed Imaging - Results EKG: Image Reviewed (NSR no ST T changes.) Problem List - Problems (1) Aspiration into lower respiratory tract Code(s): T17.800A - UNSP FOREIGN BODY IN OTH PRT RESP TRACT CAUSING ASPHYX, INIT (2) CHF exacerbation Code(s): I50.9 - HEART FAILURE, UNSPECIFIED Qualifiers: Heart failure type: unspecified Qualified Code(s): I50.9 - Heart failure, unspecified Assessment/Plan 78 year old woman advanced Parkinson's disease ,predominantly bedbound, presents with cough and wheeze . There is no prior history of CAD, CHF or arrhythmia. No reports of chest pain or palpitations. The patient has not had any fever, denies production of phlegm in cough. CXR and CT sscan does not show infiltrate or edema An echocardiogram showed normal LV function without valvular pathology. Telemetry shows sinus bradycardia She has marked sinus bradycardia on Metoprolol will DC. Mildly elevated BNP without clinical, echocardiographic or imaging to support heart failure. Pulmonary and speech and swallow eval. Will see as needed.
[2018-09-24] MEDS ORDERED: PT OWN MED DRAWER 7, Y5N ONE (18:04)
[2018-09-25] MEDS: QUEtiapine FUMARATE 25 MG TABLET (FP) PO SCH ×3 (05:13→21:05)
[2018-09-25] MEDS: PATIENT'S OWN MEDICATION (NON-FORMULARY) (Carbidopa/Levodopa [Rytary Er 36.25 Mg-145 Mg Ca PO SCH ×4 (10:35→21:04)
[2018-09-25] MEDS: HEPARIN NA (PORCINE) 5,000 UNITS/ML 1ML VIAL SQ SCH ×2 (10:36→21:05)
[2018-09-25] MEDS: SENNOSIDES/DOCUSATE COMBO (SENNA PLUS) TABLET (UD) PO SCH (10:36)
[2018-09-25] MEDS: LISINOPRIL 5 MG TABLET (FP) PO SCH (10:36)
--- NOTE | 2018-09-25 11:07 | PN ---
Progress Note (short form) - Note Progress Note: pt seen/ examined. comfortable Vital Signs Temp 97.8 F 09/25/18 09:00 Pulse 52 L 09/25/18 09:00 Resp 20 09/25/18 09:00 BP 118/57 L 09/25/18 09:00 Pulse Ox 97 09/25/18 05:00 Intake & Output 09/24/18 09/24/18 09/25/18 11:59 23:59 11:59 Intake Total 250 270 0 Balance 250 270 0 Weight 136 lb 4.8 oz 136 lb 137 lb 12.8 oz Intake: IV 10 20 0 SALINE LOCK 10 20 0 IVPB 0 Oral 240 250 Other: Voiding Method Toilet Diaper Diaper # Unmeasured Voids Void 2 Height 5 ft 6 in 5 ft 6 in Body Mass Index (BMI) 21.9 21.9 Weight Measurement Method Built in [place] Patient Lift Scale Active Medications Heparin Sodium (Porcine) (Heparin -) 5,000 unit SQ BID [facility] Last Admin: 09/25/18 10:36 Dose: 5,000 unit Lisinopril (Prinivil) 5 mg PO DAILY [facility] Last Admin: 09/25/18 10:36 Dose: 5 mg Non-Formulary Medication (Carbidopa/Levodopa [Rytary Er 36.25 Mg-145 Mg Cap]) 1 each PO QID [facility] Last Admin: 09/25/18 10:35 Dose: 1 each Non-Formulary Medication (Rotigotine [Neupro]) 1 each TD DAILY [facility] Quetiapine Fumarate (Seroquel -) 25 mg PO TID [facility] Last Admin: 09/25/18 05:13 Dose: 25 mg Senna/Docusate Sodium (Pericolace -) 1 tablet PO DAILY [facility] Last Admin: 09/25/18 10:36 Dose: 1 tablet CBC, BMP 09/24/18 05:30 09/24/18 05:30 Microbiology 09/23/18 16:10 Urine Culture - Preliminary Urine - Urine Clean Catch Lactose Fermenting Neg Bacilli 09/23/18 15:27 Blood Culture - Preliminary Blood - Peripheral Venous NO GROWTH OBTAINED AFTER 24 HOURS, INCUBATION TO CONTINUE FOR 4 DAYS. 09/23/18 15:27 Blood Culture - Preliminary Blood - Peripheral Venous NO GROWTH OBTAINED AFTER 24 HOURS, INCUBATION TO CONTINUE FOR 4 DAYS. echo-- Noted Physical Exam S1 S2 RRR Lungs - diminished at bases abd- soft ext- no edema neuro- awake sacral decubitus PLAN stable continue present care scd stockings bb held due to bradycardia swallow eval abx will follow Problem List - Problems (1) Sacral decubitus ulcer, stage IV Code(s): L89.154 - PRESSURE ULCER OF SACRAL REGION, STAGE 4 (2) Cough Code(s): R05 - COUGH (3) SOB (shortness of breath) Code(s): R06.02 - SHORTNESS OF BREATH (4) Parkinson's disease Code(s): G20 - PARKINSON'S DISEASE
--- NOTE | 2018-09-25 11:45 | PN ---
Progress Note (short form) - Note Progress Note: PULMONARY Appears lethargic Constitutional: Yes: Anxious Eyes: Yes: Conjunctiva Clear HENT: Yes: Normocephalic Neck: Yes: Trachea Midline Cardiovascular: Yes: Regular Rate and Rhythm, S1, S2 Respiratory: Yes: Poor Air Entry, Rales, Rhonchi Gastrointestinal: Yes: Normal Bowel Sounds, Soft Musculoskeletal: Yes: Muscle Weakness Edema: No Neurological: Yes: Oriented, Pre-Existing Deficit Labs/meds/notes/images reviewed (1) Aspiration into lower respiratory tract Code(s): T17.800A - UNSP FOREIGN BODY IN OTH PRT RESP TRACT CAUSING ASPHYX, INIT (2) Cough Code(s): R05 - COUGH (3) Hypoxia Code(s): R09.02 - HYPOXEMIA (4) SOB (shortness of breath) Code(s): R06.02 - SHORTNESS OF BREATH (5) Sacral decubitus ulcer, stage IV Code(s): L89.154 - PRESSURE ULCER OF SACRAL REGION, STAGE 4 (6) Parkinson's disease Code(s): G20 - PARKINSON'S DISEASE Assessment/Plan GIVEN ADVANCED STAGE OF PARKINSONS AND UNDERLYING DEBILITATION CHRONIC ASPIRATION WOULD BE OF CONCERN DENIES PRIOR SWALLOWING STUDY PATIENT IS UNDER CARE OF DR DELGADO/DR BULLARD WILL ORDER SWALLOW EVAL WITH [facility] AND NEURO F/U WITH DR DELGADO ASPIRATION PRECAUTIONS/SUPPLEMENTAL O2 NEEDED INCIDENTAL FINDING OF DESCENDING AORTIC HEMATOMA IS OF LITTLE CONCERN PER VASCULAR Trenton DAVALOS MD Problem List - Problems (1) Aspiration into lower respiratory tract Code(s): T17.800A - UNSP FOREIGN BODY IN OTH PRT RESP TRACT CAUSING ASPHYX, INIT (2) Cough Code(s): R05 - COUGH (3) Hypoxia Code(s): R09.02 - HYPOXEMIA (4) SOB (shortness of breath) Code(s): R06.02 - SHORTNESS OF BREATH (5) Sacral decubitus ulcer, stage IV Code(s): L89.154 - PRESSURE ULCER OF SACRAL REGION, STAGE 4 (6) Parkinson's disease Code(s): G20 - PARKINSON'S DISEASE
--- NOTE | 2018-09-25 12:30 | CONSULT ---
Consult - text type - Consultation Consultation Note: Neurology CHIEF COMPLAINT: shortness of breath PCP: Zaida HISTORY OF PRESENT ILLNESS: 78 year old woman history decubitus sacral ulcer, advanced Parkinson's disease ( bedbound) presents with cough and wheeze for 2 days. The patient had a cough noted last night by who called PCP Zaida who prescribed Levaquin for concern for PNA, found to have wheezing by visiting nurse, sent in to hospital for evaluation. Getting ongoing management and medical optimization. Discussed with PCP. Also with h/o Parkinson's and had an extensive conversation with at bedside. Patient on Rytary (nonformulary here) which helped improved her tremors significantly. She is a patient of Dr. Izaguirre, who I'm covering, and at this time would not make change to her regiment. He is in agreement with this. He did mention that Neuplacid was not helpful and has follow up with Dr. Izaguirre in October when he will discuss further. Consult also for AMS which seems she has improved with medical optimization. She has baseline bradykinesia with masked facies. She was awake, alert, and communicative with addressed. Recent Travel: no PAST MEDICAL HISTORY: decubitus sacral ulcer, advanced Parkinson's disease ( bedbound) PAST SURGICAL HISTORY: no Social History: Smoking: former smoker Alcohol: no Drugs: no Family History: HTN Allergies codeine Allergy (Intermediate, Verified 09/23/18 14:51) Itching Penicillins Allergy (Intermediate, Verified 09/23/18 14:51) Rash HOME MEDICATIONS: Home Medications Medication Instructions Recorded Carbidopa/Levodopa [Rytary ER 1 each PO QID 10/22/15 36.25 mg-145 mg Cap] Rotigotine [Neupro] 1 each TD DAILY 10/22/15 Sennosides/Docusate Sodium [Stool 1 each PO DAILY 10/22/15 Softener-Laxative Tab] Cefuroxime Axetil [Ceftin -] 500 mg PO BID 09/08/18 Quetiapine Fumarate [Seroquel -] 25 mg PO TID 09/23/18 REVIEW OF SYSTEMS CONSTITUTIONAL: Absent: fever, chills, diaphoresis, generalized weakness, malaise, loss of appetite, weight change HEENT: Absent: rhinorrhea, nasal congestion, throat pain, throat swelling, difficulty swallowing, mouth swelling, ear pain, eye pain, visual changes CARDIOVASCULAR: Absent: chest pain, syncope, palpitations, irregular heart rate, lightheadedness , peripheral edema RESPIRATORY: Absent: cough, dyspnea with exertion, orthopnea, wheezing, stridor, hemoptysis present - shortness of breath, GASTROINTESTINAL: Absent: abdominal pain, abdominal distension, nausea, vomiting, diarrhea, constipation, melena, hematochezia GENITOURINARY: Absent: dysuria, frequency, urgency, hesitancy, hematuria, flank pain, genital pain MUSCULOSKELETAL: Absent: myalgia, arthralgia, joint swelling, back pain, neck pain SKIN: Absent: rash, itching, pallor HEMATOLOGIC/IMMUNOLOGIC: Absent: easy bleeding, easy bruising, lymphadenopathy, frequent infections ENDOCRINE: Absent: unexplained weight gain, unexplained weight loss, heat intolerance, cold intolerance NEUROLOGIC: Absent: headache, focal weakness or paresthesias, dizziness, unsteady gait, seizure, mental status changes, bladder or bowel incontinence PSYCHIATRIC: Absent: anxiety, depression, suicidal or homicidal ideation, hallucinations. PHYSICAL EXAMINATION Vital Signs Period Temp Pulse Resp BP Sys/Warner Pulse Ox Last 24 Hr 97.7 F-99.0 F 50-77 18-20 93-132/48-71 95-97 GENERAL: Awake, alert, disoriented HEAD: Normal with no signs of trauma. EYES: Pupils equal, round and reactive to light, extraocular movements intact, sclera anicteric, conjunctiva clear. No lid lag. EARS, NOSE, THROAT: Ears normal, nares patent, oropharynx clear without exudates. Moist mucous membranes. NECK: Normal range of motion, supple without lymphadenopathy, JVD, or masses. LUNGS: some coarse breaths sounds b/l, no wheezing appreciated HEART: Regular rate and rhythm, normal S1 and S2 without murmur, rub or gallop. ABDOMEN: Soft, nontender, not distended, normoactive bowel sounds, no guarding, no rebound, no masses. No hepatomegaly or splenomegaly. MUSCULOSKELETAL: Normal range of motion at all joints. No bony deformities or tenderness. No CVA tenderness. UPPER EXTREMITIES: 2+ pulses, warm, well-perfused. No cyanosis. No clubbing. No peripheral edema. LOWER EXTREMITIES: 2+ pulses, warm, well-perfused. No calf tenderness. No peripheral edema. NEUROLOGICAL: Cranial nerves II-XII intact. dementia, bed bound PSYCHIATRIC: dementia SKIN: Warm, dry, normal turgor, no rashes stage 4 sacral decubitus ulcer Laboratory Results - last 24 hr 09/23/18 09/23/18 09/23/18 15:20 15:20 15:20 WBC RBC Hgb Hct MCV MCH MCHC RDW Plt Count MPV Absolute Neuts (auto) Neutrophils % Lymphocytes % Monocytes % Eosinophils % Basophils % Nucleated RBC % PT with INR 15.20 H INR 1.28 H PTT (Actin FS) 24.1 L D-Dimer VBG pH Cancelled POC VBG pCO2 Cancelled POC VBG pO2 Cancelled VBG HCO3 Cancelled VBG O2 Sat (Avi) Cancelled VBG Base Excess Cancelled Sodium Potassium Chloride Carbon Dioxide Anion Gap BUN Creatinine Creat Clearance w eGFR Random Glucose Lactic Acid 1.1 Calcium Total Bilirubin AST ALT Alkaline Phosphatase Troponin I B-Natriuretic Peptide Total Protein Albumin Urine Color Urine Appearance Urine pH Ur Specific [place] Urine Protein Urine Glucose (UA) Urine Ketones Urine Blood Urine Nitrite Urine Bilirubin Urine Urobilinogen Ur Leukocyte Esterase Urine WBC (Auto) Urine RBC (Auto) Urine Casts (Auto) U Epithel Cells (Auto) Urine Bacteria (Auto) Influenza A (Rapid) Influenza B (Rapid) 09/23/18 09/23/18 09/23/18 15:27 15:27 16:10 WBC 8.1 RBC 3.75 Hgb 11.5 Hct 35.0 MCV 93.5 MCH 30.6 MCHC 32.8 RDW 13.5 Plt Count 371 MPV 6.7 L Absolute Neuts (auto) 7.1 Neutrophils % 88.2 H Lymphocytes % 2.3 L D Monocytes % 8.7 Eosinophils % 0.4 Basophils % 0.4 Nucleated RBC % 0 PT with INR INR PTT (Actin FS) D-Dimer VBG pH POC VBG pCO2 POC VBG pO2 VBG HCO3 VBG O2 Sat (Avi) VBG Base Excess Sodium 137 Potassium 4.8 Chloride 103 Carbon Dioxide 27 Anion Gap 7 L BUN 16 Creatinine 0.7 Creat Clearance w eGFR 81.36 Random Glucose 94 Lactic Acid Calcium 9.0 Total Bilirubin 0.4 AST 25 ALT 6 L Alkaline Phosphatase 97 Troponin I < 0.02 B-Natriuretic Peptide 1036.6 H Total Protein 7.4 Albumin 3.0 L Urine Color Yellow Urine Appearance Turbid Urine pH 6.5 Ur Specific [place] 1.020 Urine Protein Trace Urine Glucose (UA) Negative Urine Ketones Trace H Urine Blood Negative Urine Nitrite Positive H Urine Bilirubin Negative Urine Urobilinogen 1.0 Ur Leukocyte Esterase 3+ H Urine WBC (Auto) 428 Urine RBC (Auto) 8.1 Urine Casts (Auto) 64 U Epithel Cells (Auto) 2.4 Urine Bacteria (Auto) 8239.4 Influenza A (Rapid) Influenza B (Rapid) 09/23/18 09/23/18 16:10 16:10 WBC RBC Hgb Hct MCV MCH MCHC RDW Plt Count MPV Absolute Neuts (auto) Neutrophils % Lymphocytes % Monocytes % Eosinophils % Basophils % Nucleated RBC % PT with INR INR PTT (Actin FS) D-Dimer 2180 H VBG pH POC VBG pCO2 POC VBG pO2 VBG HCO3 VBG O2 Sat (Avi) VBG Base Excess Sodium Potassium Chloride Carbon Dioxide Anion Gap BUN Creatinine Creat Clearance w eGFR Random Glucose Lactic Acid Calcium Total Bilirubin AST ALT Alkaline Phosphatase Troponin I B-Natriuretic Peptide Total Protein Albumin Urine Color Urine Appearance Urine pH Ur Specific [place] Urine Protein Urine Glucose (UA) Urine Ketones Urine Blood Urine Nitrite Urine Bilirubin Urine Urobilinogen Ur Leukocyte Esterase Urine WBC (Auto) Urine RBC (Auto) Urine Casts (Auto) U Epithel Cells (Auto) Urine Bacteria (Auto) Influenza A (Rapid) Negative Influenza B (Rapid) Negative imaging studies reviewed ASSESSMENT/PLAN: 78 year old woman history decubitus sacral ulcer, advanced Parkinson's disease ( bedbound) presents with cough and wheeze for 2 days. The patient had a cough noted last night by who called PCP Zaida who prescribed Levaquin for concern for PNA, found to have wheezing by visiting nurse, sent in to hospital for evaluation. Getting ongoing management and medical optimization. Discussed with PCP. Also with h/o Parkinson's and had an extensive conversation with at bedside. Patient on Rytary (nonformulary here) which helped improved her tremors significantly. She is a patient of Dr. Izaguirre, who I'm covering, and at this time would not make change to her regiment. He is in agreement with this. He did mention that Neuplacid was not helpful and has follow up with Dr. Izaguirre in October when he will discuss further. Consult also for AMS which seems she has improved with medical optimization. She has baseline bradykinesia with masked facies. She was awake, alert, and communicative with addressed. Continued medical mgmt, pulmonary treatment ongoing. Monitor decubs as can precipitate AMS with infectious process. As noted, patient to see Dr. Izaguirre as outpatient and remains stable on Rytary.
[2018-09-25] MEDS ORDERED: PT OWN MED DRAWER 7, Y5N ONE ×2 (14:03→17:54)
[2018-09-26] MEDS: QUEtiapine FUMARATE 25 MG TABLET (FP) PO SCH ×3 (05:00→22:17)
[2018-09-26 07:42] LABS: BASO % 0.1 % (0-2.0); EOS % 0.1 % (0-4.5); HEMATOCRIT 33.3 % (32.4-45.2); HEMOGLOBIN 11.2 GM/dL (10.7-15.3); LYMPH % 10.6 % (8-40); MCH 30.9 pg (25.7-33.7); MCHC 33.6 g/dl (32.0-36.0); MEAN CELL VOLUME 91.9 fl (80-96); MEAN PLT VOLUME 6.6 fl (7.5-11.1); MONO % 12.2 % (3.8-10.2); PLATELET COUNT 358 K/MM3 (134-434); RBC 3.62 M/mm3 (3.60-5.2); RDW 13.7 % (11.6-15.6); WHITE BLOOD COUNT 7.3 K/mm3 (4.0-10.0)
[2018-09-26 08:30] LABS: ALBUMIN 2.5 g/dl (3.4-5.0); ALK PHOS 71 U/L (45-117); ANION GAP 7 MMOL/L (8-16); BILIRUBIN,TOTAL 0.3 mg/dL (0.2-1); BLOOD UREA NITROGEN 26 mg/dL (7-18); CALCIUM 8.9 mg/dL (8.5-10.1); CHLORIDE 104 mmol/L (98-107); CO2 29 mmol/L (21-32); CREATININE 0.7 mg/dL (0.55-1.3); GLUCOSE,RANDOM 93 mg/dL (74-106); SGOT/AST 7 U/L (15-37); SGPT/ALT < 6 U/L (13-61); SODIUM 140 mmol/L (136-145)
[2018-09-26] MEDS: HEPARIN NA (PORCINE) 5,000 UNITS/ML 1ML VIAL SQ SCH ×2 (10:13→22:17)
[2018-09-26] MEDS: PATIENT'S OWN MEDICATION (NON-FORMULARY) (Carbidopa/Levodopa [Rytary Er 36.25 Mg-145 Mg Ca PO SCH ×5 (10:13→22:16)
[2018-09-26] MEDS: SENNOSIDES/DOCUSATE COMBO (SENNA PLUS) TABLET (UD) PO SCH (10:15)
[2018-09-26] MEDS: LISINOPRIL 5 MG TABLET (FP) PO SCH (10:15)
--- NOTE | 2018-09-26 10:30 | PN ---
Progress Note (short form) - Note Progress Note: Remains same afebrile Vital Signs Temp 98.2 F 09/26/18 05:00 Pulse 58 L 09/26/18 05:00 Resp 20 09/26/18 05:00 BP 102/64 09/26/18 05:00 Pulse Ox 96 09/26/18 05:00 Intake & Output 09/25/18 09/25/18 09/26/18 11:59 23:59 11:59 Intake Total 0 470 Balance 0 470 Weight 137 lb 12.8 oz 136 lb 12.8 oz Intake: IV 0 10 SALINE LOCK 0 10 IVPB 100 Oral 360 Other: Voiding Method Diaper Diaper Diaper # Unmeasured Voids Void 1 Bowel Movement Yes # Bowel Movements 1 Weight Measurement Method Patient Lift Scale Patient Lift Scale Active Medications Heparin Sodium (Porcine) (Heparin -) 5,000 unit SQ BID [facility] Last Admin: 09/25/18 21:05 Dose: 5,000 unit Levofloxacin (Levaquin 500 Mg Premixed Ivpb -) 500 mg in 100 mls @ 100 mls/hr IVPB DAILY [facility]; Protocol Last Admin: 09/25/18 13:35 Dose: 100 mls/hr Lisinopril (Prinivil) 5 mg PO DAILY [facility] Last Admin: 09/25/18 10:36 Dose: 5 mg Non-Formulary Medication (Carbidopa/Levodopa [Rytary Er 36.25 Mg-145 Mg Cap]) 1 each PO QID [facility] Last Admin: 09/25/18 21:04 Dose: 1 each Non-Formulary Medication (Rotigotine [Neupro]) 1 each TD DAILY [facility] Quetiapine Fumarate (Seroquel -) 25 mg PO TID [facility] Last Admin: 09/26/18 05:00 Dose: 25 mg Senna/Docusate Sodium (Pericolace -) 1 tablet PO DAILY [facility] Last Admin: 09/25/18 10:36 Dose: 1 tablet CBC, BMP 09/26/18 05:30 09/26/18 05:30 Microbiology 09/23/18 15:27 Blood Culture - Preliminary Blood - Peripheral Venous NO GROWTH OBTAINED AFTER 48 HOURS, INCUBATION TO CONTINUE FOR 3 DAYS. 09/23/18 15:27 Blood Culture - Preliminary Blood - Peripheral Venous NO GROWTH OBTAINED AFTER 48 HOURS, INCUBATION TO CONTINUE FOR 3 DAYS. 09/23/18 16:10 Urine Culture - Preliminary Urine - Urine Clean Catch Lactose Fermenting Neg Bacilli Physical Exam S1 S2 RRR Lungs - diminished at bases abd- soft ext- no edema neuro- awake sacral decubitus PLAN stable continue present care abx will follow d/c tele pt is dnr/di f/u cultures swallow eval Problem List - Problems (1) Sacral decubitus ulcer, stage IV Code(s): L89.154 - PRESSURE ULCER OF SACRAL REGION, STAGE 4 (2) Cough Code(s): R05 - COUGH (3) SOB (shortness of breath) Code(s): R06.02 - SHORTNESS OF BREATH (4) Parkinson's disease Code(s): G20 - PARKINSON'S DISEASE
--- NOTE | 2018-09-26 11:56 | PN ---
Progress Note (short form) - Note Progress Note: Neurology CHIEF COMPLAINT: shortness of breath PCP: Zaida HISTORY OF PRESENT ILLNESS: 78 year old woman history decubitus sacral ulcer, advanced Parkinson's disease ( bedbound) presents with cough and wheeze for 2 days prior to admission. The patient had a cough noted night prior to admission by who called PCP Zaida who prescribed Levaquin for concern for PNA, found to have wheezing by visiting nurse, sent in to hospital for evaluation. Getting ongoing management and medical optimization. Discussed with PCP. Also with h/o Parkinson's and had an extensive conversation with at bedside. Patient on Rytary ( nonformulary here) which helped improved her tremors significantly. She is a patient of Dr. Izaguirre, who I'm covering, and at this time would not make change to her regiment. He is in agreement with this. He did mention that Neuplacid was not helpful and has follow up with Dr. Izaguirre in October when he will discuss further. Consult also for AMS which seems she has improved with medical optimization. She has baseline bradykinesia with masked facies. She was awake, alert, and communicative. states she was not this awake earlier, mental status seems promising. Active Medications Heparin Sodium (Porcine) (Heparin -) 5,000 unit SQ BID [facility] Last Admin: 09/26/18 10:13 Dose: 5,000 unit Levofloxacin (Levaquin 500 Mg Premixed Ivpb -) 500 mg in 100 mls @ 100 mls/hr IVPB DAILY [facility]; Protocol Last Admin: 09/26/18 10:32 Dose: 100 mls/hr Lisinopril (Prinivil) 5 mg PO DAILY [facility] Last Admin: 09/26/18 10:15 Dose: 5 mg Non-Formulary Medication (Carbidopa/Levodopa [Rytary Er 36.25 Mg-145 Mg Cap]) 1 each PO QID [facility] Last Admin: 09/26/18 10:13 Dose: 1 each Non-Formulary Medication (Rotigotine [Neupro]) 1 each TD DAILY [facility] Quetiapine Fumarate (Seroquel -) 25 mg PO TID [facility] Last Admin: 09/26/18 05:00 Dose: 25 mg Senna/Docusate Sodium (Pericolace -) 1 tablet PO DAILY [facility] Last Admin: 09/26/18 10:15 Dose: 1 tablet PHYSICAL EXAMINATION Vital Signs Temperature 98.4 F 09/26/18 09:00 Pulse Rate 62 09/26/18 09:00 Respiratory Rate 18 09/26/18 09:00 Blood Pressure 92/49 L 09/26/18 09:00 O2 Sat by Pulse Oximetry (%) 98 09/26/18 10:00 GENERAL: Awake, alert, disoriented HEAD: Normal with no signs of trauma. EYES: Pupils equal, round and reactive to light, extraocular movements intact, sclera anicteric, conjunctiva clear. No lid lag. EARS, NOSE, THROAT: Ears normal, nares patent, oropharynx clear without exudates. Moist mucous membranes. NECK: Normal range of motion, supple without lymphadenopathy, JVD, or masses. LUNGS: some coarse breaths sounds b/l, no wheezing appreciated HEART: Regular rate and rhythm, normal S1 and S2 without murmur, rub or gallop. ABDOMEN: Soft, nontender, not distended, normoactive bowel sounds, no guarding, no rebound, no masses. No hepatomegaly or splenomegaly. MUSCULOSKELETAL: Normal range of motion at all joints. No bony deformities or tenderness. No CVA tenderness. UPPER EXTREMITIES: 2+ pulses, warm, well-perfused. No cyanosis. No clubbing. No peripheral edema. LOWER EXTREMITIES: 2+ pulses, warm, well-perfused. No calf tenderness. No peripheral edema. NEUROLOGICAL: Cranial nerves II-XII intact. dementia, bed bound PSYCHIATRIC: dementia SKIN: Warm, dry, normal turgor, no rashes stage 4 sacral decubitus ulcer CBCD WBC 7.3 K/mm3 (4.0-10.0) 09/26/18 05:30 RBC 3.62 M/mm3 (3.60-5.2) 09/26/18 05:30 Hgb 11.2 GM/dL (10.7-15.3) 09/26/18 05:30 Hct 33.3 % (32.4-45.2) 09/26/18 05:30 MCV 91.9 fl (80-96) 09/26/18 05:30 MCHC 33.6 g/dl (32.0-36.0) 09/26/18 05:30 RDW 13.7 % (11.6-15.6) 09/26/18 05:30 Plt Count 358 K/MM3 (134-434) 09/26/18 05:30 MPV 6.6 fl (7.5-11.1) L 09/26/18 05:30 CMP Sodium 140 mmol/L (136-145) 09/26/18 05:30 Potassium 4.0 mmol/L (3.5-5.1) 09/26/18 05:30 Chloride 104 mmol/L (98-107) 09/26/18 05:30 Carbon Dioxide 29 mmol/L (21-32) 09/26/18 05:30 Anion Gap 7 MMOL/L (8-16) L 09/26/18 05:30 BUN 26 mg/dL (7-18) H 09/26/18 05:30 Creatinine 0.7 mg/dL (0.55-1.3) 09/26/18 05:30 Creat Clearance w eGFR 81.36 (>60) 09/26/18 05:30 Random Glucose 93 mg/dL (74-106) 09/26/18 05:30 Calcium 8.9 mg/dL (8.5-10.1) 09/26/18 05:30 Total Bilirubin 0.3 mg/dL (0.2-1) 09/26/18 05:30 AST 7 U/L (15-37) L 09/26/18 05:30 ALT < 6 U/L (13-61) L 09/26/18 05:30 Alkaline Phosphatase 71 U/L (45-117) 09/26/18 05:30 Total Protein 6.0 g/dl (6.4-8.2) L 09/26/18 05:30 Albumin 2.5 g/dl (3.4-5.0) L 09/26/18 05:30 CARDIAC ENZYMES Troponin I < 0.02 ng/ml (0.00-0.05) 09/23/18 15:27 imaging studies reviewed ASSESSMENT/PLAN: 78 year old woman history decubitus sacral ulcer, advanced Parkinson's disease ( bedbound) presents with cough and wheeze for 2 days prior to admission. The patient had a cough noted night prior to admission by who called PCP Zaida who prescribed Levaquin for concern for PNA, found to have wheezing by visiting nurse, sent in to hospital for evaluation. Getting ongoing management and medical optimization. Discussed with PCP. Also with h/o Parkinson's and had an extensive conversation with at bedside. Patient on Rytary ( nonformulary here) which helped improved her tremors significantly. She is a patient of Dr. Izaguirre, who I'm covering, and at this time would not make change to her regiment. He is in agreement with this. He did mention that Neuplacid was not helpful and has follow up with Dr. Izaguirre in October when he will discuss further. Consult also for AMS which seems she has improved with medical optimization. She has baseline bradykinesia with masked facies. She was awake, alert, and communicative when addressed. Continued medical mgmt, pulmonary treatment ongoing. Monitor decubs as can precipitate AMS with infectious process. As noted, patient to see Dr. Izaguirre as outpatient and remains stable on Rytary. Mental status improving. They will discuss Neuplacid with Dr. Izaguirre as outpatient.
[2018-09-26] MEDS ORDERED: PT OWN MED DRAWER 7, Y5N ONE (22:40)
[2018-09-27] MEDS: QUEtiapine FUMARATE 25 MG TABLET (FP) PO SCH ×3 (05:52→22:12)
[2018-09-27] MEDS ORDERED: PT OWN MED DRAWER 7, Y5N ONE ×2 (07:24→09:49)
--- NOTE | 2018-09-27 09:35 | PN ---
Progress Note (short form) - Note Progress Note: pt seen/ examined awake/ comfortable not eating well many times Vital Signs Temp 97.4 F L 09/27/18 06:31 Pulse 76 09/27/18 06:31 Resp 20 09/27/18 06:31 BP 96/54 L 09/27/18 06:31 Pulse Ox 97 09/26/18 20:04 Intake & Output 09/26/18 09/26/18 09/27/18 11:59 23:59 11:59 Intake Total 270 Balance 270 Weight 136 lb 12.8 oz 133 lb 6 oz Intake: IV 10 SALINE LOCK 10 IVPB 100 Oral 160 Other: Voiding Method Diaper Incontinent # Unmeasured Voids Void 0 Weight Measurement Method Patient Lift Scale Built in [facility] Active Medications Heparin Sodium (Porcine) (Heparin -) 5,000 unit SQ BID [facility] Last Admin: 09/26/18 22:17 Dose: 5,000 unit Levofloxacin (Levaquin 500 Mg Premixed Ivpb -) 500 mg in 100 mls @ 100 mls/hr IVPB DAILY [facility]; Protocol Last Admin: 09/26/18 10:32 Dose: 100 mls/hr Non-Formulary Medication (Carbidopa/Levodopa [Rytary Er 36.25 Mg-145 Mg Cap]) 1 each PO QID [facility] Last Admin: 09/26/18 22:16 Dose: 1 each Non-Formulary Medication (Rotigotine [Neupro]) 1 each TD DAILY [facility] Quetiapine Fumarate (Seroquel -) 25 mg PO TID [facility] Last Admin: 09/27/18 05:52 Dose: 25 mg Senna/Docusate Sodium (Pericolace -) 1 tablet PO DAILY [facility] Last Admin: 09/26/18 10:15 Dose: 1 tablet CBC, BMP 09/26/18 05:30 09/26/18 05:30 Microbiology 09/23/18 15:27 Blood Culture - Preliminary Blood - Peripheral Venous NO GROWTH OBTAINED AFTER 72 HOURS, INCUBATION TO CONTINUE FOR 2 DAYS. 09/23/18 15:27 Blood Culture - Preliminary Blood - Peripheral Venous NO GROWTH OBTAINED AFTER 72 HOURS, INCUBATION TO CONTINUE FOR 2 DAYS. 09/23/18 16:10 Urine Culture - Final Urine - Urine Clean Catch Klebsiella Pneumoniae - Esbl Physical Exam S1 S2 RRR Lungs - diminished at bases abd- soft ext- no edema neuro- awake sacral decubitus PLAN stable continue present care abx will follow d/c tele pt is dnr/di f/u cultures swallow eval ESbl precautions abx swallowing study-- Discussed with Zahira Gray peg recommended d/c Enalapril== bp on low side will consult gi for peg as well as Palliative care Problem List - Problems (1) Sacral decubitus ulcer, stage IV Code(s): L89.154 - PRESSURE ULCER OF SACRAL REGION, STAGE 4 (2) Cough Code(s): R05 - COUGH (3) SOB (shortness of breath) Code(s): R06.02 - SHORTNESS OF BREATH (4) Parkinson's disease Code(s): G20 - PARKINSON'S DISEASE
[2018-09-27] MEDS: PATIENT'S OWN MEDICATION (NON-FORMULARY) (Carbidopa/Levodopa [Rytary Er 36.25 Mg-145 Mg Ca PO SCH ×4 (09:55→22:22)
[2018-09-27] MEDS: SENNOSIDES/DOCUSATE COMBO (SENNA PLUS) TABLET (UD) PO SCH (09:55)
[2018-09-27] MEDS: HEPARIN NA (PORCINE) 5,000 UNITS/ML 1ML VIAL SQ SCH ×2 (09:56→22:14)
--- NOTE | 2018-09-27 10:01 | PN ---
Progress Note (short form) - Note Progress Note: NEUROLOGY PROGRESS: Events reviewed and discussed with JANELL Cross. Coverage from Dr. Aleman is greatly appreciated. This 78 yo F is well-known to me for Parkinson's Disease, Parkinson's psychosis , and OMS. Last seen by me in office 06/24/18. Recent changes include: increase in Rytary to (82m0=202) QID; Quetiapine 50 mg qam/100 mg qhs, with continuation of Nuplazid (34 mg qd) . D/C rivastigmine. Admitted after new onset cough and generalized weakness, found to have urine WBC = 428 with+ ESBL in Urine, currently on IV levofloxacin. Also with wound vac to sacral ulcer. ALYSA: BPs 80/50s. Cor reg. No bruit. Neck rigid in all directions. Wound vac in situ. Wearing diaper. NEURO: Eyes closed. sparse, hypophonic speech. Ox to self. Follows one step commands. + glabella, grasps Eyes respond to threat. Intermittent rhythmic rest tremor both hands with jaw tremor. + cogwheeling. Myoclonus of feet. Reflexes symmetric, except absent AJ's. Plantars silent. Decreased response to pinch in all four's. Impression: B/L Cerebral Dysfunction (OMS, chronic) Myoclonic jerks suggestive of Toxic-Metabolic Encephalopathy Parkinson's disease Parkinson's disease psychosis Suggest: Aggressive fluid hydration and antibiotics Orthostatic BP's Optimization of L-dopa once BP stabilizes (on rytary 145 QID currently) Bedside PT for mobilization vs. contractures Thank you very much, Cristobal Izaguirre MD
--- NOTE | 2018-09-27 10:22 | PN ---
Progress Note (short form) - Note Progress Note: PULMONARY More alert, awake per at bedside. No fevers recorded. Vital Signs Period Temp Pulse Resp BP Sys/Warner Pulse Ox Last 24 Hr 97.4 F-98.4 F 55-76 18-20 65-96/43-62 97-97 Gen: NAD at rest Heart: RRR Lung: scattered rhonchi Abd: soft, nontender Ext: no edema CBC, BMP 09/26/18 05:30 09/26/18 05:30 Active Medications Heparin Sodium (Porcine) (Heparin -) 5,000 unit SQ BID [facility] Last Admin: 09/27/18 09:56 Dose: 5,000 unit Levofloxacin (Levaquin 500 Mg Premixed Ivpb -) 500 mg in 100 mls @ 100 mls/hr IVPB DAILY [facility]; Protocol Last Admin: 09/27/18 09:55 Dose: 100 mls/hr Non-Formulary Medication (Carbidopa/Levodopa [Rytary Er 36.25 Mg-145 Mg Cap]) 1 each PO QID [facility] Last Admin: 09/27/18 09:55 Dose: 1 each Non-Formulary Medication (Rotigotine [Neupro]) 1 each TD DAILY [facility] Quetiapine Fumarate (Seroquel -) 25 mg PO TID [facility] Last Admin: 09/27/18 05:52 Dose: 25 mg Senna/Docusate Sodium (Pericolace -) 1 tablet PO DAILY [facility] Last Admin: 09/27/18 09:55 Dose: 1 tablet A/P Pneumonia likely aspiration Parkinsons Dementia Sacral Decubitus Ulcer - continue antibiotics - will start inhaled bronchodilators - O2 to keep SpO2 >90% - aspiration precautions - DVT prophylaxis
--- NOTE | 2018-09-27 11:13 | CONSULT ---
Admitting History and Physical - Primary Care Physician PCP: Alex Tabor - Admission History of Present Illness: 78 year old woman history decubitus sacral ulcer, advanced Parkinson's disease , predominantly bed bound, admitted with cough and wheeze for 2 days with dx of Pneumonia likely aspiration per Pulmonary. Pt's reports hospitalization and extensive rehab placement after "Sinus infection went to her brain". Selected Entries 09/24/18 09/24/18 09/25/18 11:13 20:01 01:00 Breakfast Diet Tolerated Well Well Supper 100% Temperature 99.0 F 09/25/18 09/25/18 09/25/18 05:00 09:00 10:00 Breakfast 25% Diet Tolerated Poor Supper Temperature 98.7 F 97.8 F 09/25/18 09/25/18 09/25/18 14:00 20:07 21:00 Breakfast Diet Tolerated Poor Supper 25% Temperature 98.7 F 98.4 F 09/26/18 09/26/18 09/26/18 01:00 05:00 09:00 Breakfast Diet Tolerated Supper Temperature 97.8 F 98.2 F 98.4 F 09/26/18 09/26/18 09/26/18 12:01 18:00 18:35 Breakfast 0 Diet Tolerated Poor Supper 0 Temperature 98.3 F 09/26/18 09/27/18 09/27/18 20:04 02:10 06:31 Breakfast Diet Tolerated Supper Temperature 98.4 F 97.9 F 97.4 F L Pt on reg diet/thin liquids. Discharge home planned for today. This is my first consult with this pt. 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 Cardiovascular: No: AFIB Pulmonary: No: O2 Dependent Gastrointestinal: No: Ascites Hepatobiliary: No: Cirrhosis Renal/: No: Renal Failure ...: No Heme/Onc: Yes: Anemia Psych: No: Addictions - Smoking History Smoking history: Never smoked Have you smoked in the past 12 months: No Aproximately how many cigarettes per day: 0 - Alcohol/Substance Use Hx Alcohol Use: No History - Admission Reason For Visit: ACUTE ON CHRONIC CONGESTIVE HEART FAILURE - Diagnostics X-ray: Report Reviewed - General Mental Status: Forgetful, Vague, Confused, Flat Affect Attention: Moderate Impairment Ability to Follow Directions: Poor Head/Neck Control: Fair - Hearing Hearing: Functional Hearing: Normal Hearing Aide: No With Patient: No Speech Evaluation - Communication Primary Language: CYMRAES Communication: Yes: Simple Responses (rare verbalizations - just her name "Pati" but did not answer any other questions.) Oral Expression Ability: Yes: Severe Impairment - Speech Production Intelligibility: Yes: Moderately Impaired - Speech Characteristics Voice Loudness: Mildly Soft/Quiet, Moderately Soft/Quiet Voice Pitch: Yes: Normal Voice Phonatory-based Quality: Yes: Normal Speech Clarity: < 75% Nasal Resonance: Normal Articulation: Yes: Precise - Language/Auditory Comprehension Observation: Comprehends Conversational Speech: No (social speech, possibly simple questions) - Language/Verbal Expression Able to Respond to Simple Queries: Yes: Moderately Impaired, Severely Impaired Able to Communicate Wants and Needs: Yes: Moderately Impaired, Severely Impaired Functional Communication Status: Yes: Moderately Impaired, Severely Impaired - Swallow Evaluation/Bedside Assessment Current Nutritional Intake: Regular, Thin Liquids Oral Secretions: Yes: Pooling Dentition: Yes: Adequate Facial Symmetry at Rest: Symmetrical Facial Symmetry on Retraction: Symmetrical Lingual Movement: Symmetric Lingual Speed of Movement: Reduced Lingual Movement Strgth Against Opposition: Reduced Lingual Movement Characteristics: Normal Laryngeal Movement: Reduced Excursion, Labored,delay initiation Rate of Intake: Slow/Holding Timing of Swallow: Delayed Coughing/Throat Clear: Yes (delayed cough with thin water) Recommendations - Speech Evaluation, Impression/Plan Impression: High risk of malnutrition, dehydration with oral holding, delayed swallow, cough on thin liquid, c/w aspiration. It took pt 25 min to take small [place] juice today. Difficulty taking medication at home. - Dysphagia Impressions/Plan Swallowing Skills: Impaired Dysphagia Impressions: Moderate Impairment, Ongoing Evaluation *Silent aspiration: cannot be R/O at bedside Dysphagia Treatment Plan: Small Bites, Chin Tuck/Down, Clear Pocket Food, Facilitative Feeding, Safe Rate, 1/2 tsp. at a time, Elevate HOB during feed Recommendations: Palliative Care (Discussed with nursing/ consideration for PEG insertion for improved consistency of nutrition, hydration,medication, with pleasure feedings, if tolerated.) - Recommendations Diet Consistency: Dysphagia Pureed Medication Administration: Crushed with applesauce Liquids: G[place]anna Thick (on tsp) Supplement: Magic Cup, Ensure Pudding, Other (2 ele HN)
--- NOTE | 2018-09-27 12:37 | CON.GI ---
Consult Consult Specialty:: Gastroenterology Referred by:: Dr. Alex Tabor Reason for Consultation:: PEG insertion - History of Present Illness Chief Complaint: Patient communicates minimally History of Present Illness: 78F admitted for suspected aspiration pneumonia. The history is obtained from her Azam who is at her bedside and who is her primary mold operator. He tells me that Gaby has OMS and rapidly progressing Parkinson's Disease since she is not able to swallow her new Parkinson medication wholly consistently. She is bedridden. He is a disabled . He has had to feed his slowly and mainly with soft foods as she chews minimally. He does not think that she has ever had an EGD or a colonoscopy. 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 Anni Gray did a swallowing evaluation earlier and has found Gaby to be at risk for aspiration. A pureed dysphagia diet has been initiated. Gaby is a DNR. 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 Place of : [facility] History of Recent Travel: No Home Medications - Allergies Allergies/Adverse Reactions: Allergies Allergy/AdvReac Type Severity Reaction Status Date / Time codeine Allergy Intermediate Itching Verified 09/23/18 14:51 Penicillins Allergy Intermediate Rash Verified 09/23/18 14:51 - Home Medications Home Medications: Ambulatory Orders Carbidopa/Levodopa [Rytary ER 36.25 mg-145 mg Cap] 1 each PO QID 10/22/15 Rotigotine [Neupro] 1 each TD DAILY 10/22/15 Sennosides/Docusate Sodium [Stool Softener-Laxative Tab] 1 each PO DAILY Cefuroxime Axetil [Ceftin -] 500 mg PO BID 09/08/18 Quetiapine Fumarate [Seroquel -] 25 mg PO TID 09/23/18 Family Disease History - Family Disease History Family Disease History: CA: Father (brain cancer), Mother (leukemia) Review of Systems Unable to obtain ROS, reason: dementia Physical Exam-GI Vital Signs: Vital Signs Temperature 97.8 F 09/27/18 09:00 Pulse Rate 59 L 09/27/18 09:00 Respiratory Rate 20 09/27/18 09:00 Blood Pressure 130/70 09/27/18 09:00 O2 Sat by Pulse Oximetry (%) 97 09/27/18 10:00 CBC,CMP WBC 7.3 K/mm3 (4.0-10.0) 09/26/18 05:30 RBC 3.62 M/mm3 (3.60-5.2) 09/26/18 05:30 Hgb 11.2 GM/dL (10.7-15.3) 09/26/18 05:30 Hct 33.3 % (32.4-45.2) 09/26/18 05:30 MCV 91.9 fl (80-96) 09/26/18 05:30 MCH 30.9 pg (25.7-33.7) 09/26/18 05:30 MCHC 33.6 g/dl (32.0-36.0) 09/26/18 05:30 RDW 13.7 % (11.6-15.6) 09/26/18 05:30 Plt Count 358 K/MM3 (134-434) 09/26/18 05:30 MPV 6.6 fl (7.5-11.1) L 09/26/18 05:30 Absolute Neuts (auto) 5.6 K/mm3 (1.5-8.0) 09/26/18 05:30 Neutrophils % 77.0 % (42.8-82.8) 09/26/18 05:30 Lymphocytes % 10.6 % (8-40) 09/26/18 05:30 Monocytes % 12.2 % (3.8-10.2) H D 09/26/18 05:30 Eosinophils % 0.1 % (0-4.5) D 09/26/18 05:30 Basophils % 0.1 % (0-2.0) 09/26/18 05:30 Nucleated RBC % 0 % (0-0) 09/26/18 05:30 Sodium 140 mmol/L (136-145) 09/26/18 05:30 Potassium 4.0 mmol/L (3.5-5.1) 09/26/18 05:30 Chloride 104 mmol/L (98-107) 09/26/18 05:30 Carbon Dioxide 29 mmol/L (21-32) 09/26/18 05:30 Anion Gap 7 MMOL/L (8-16) L 09/26/18 05:30 BUN 26 mg/dL (7-18) H 09/26/18 05:30 Creatinine 0.7 mg/dL (0.55-1.3) 09/26/18 05:30 Creat Clearance w eGFR 81.36 (>60) 09/26/18 05:30 POC Glucometer 91 UNITS (80-120) 09/26/18 06:31 Random Glucose 93 mg/dL (74-106) 09/26/18 05:30 Lactic Acid 1.1 mmol/L (0.4-2.0) 09/23/18 15:20 Calcium 8.9 mg/dL (8.5-10.1) 09/26/18 05:30 Total Bilirubin 0.3 mg/dL (0.2-1) 09/26/18 05:30 AST 7 U/L (15-37) L 09/26/18 05:30 ALT < 6 U/L (13-61) L 09/26/18 05:30 Alkaline Phosphatase 71 U/L (45-117) 09/26/18 05:30 Troponin I < 0.02 ng/ml (0.00-0.05) 09/23/18 15:27 B-Natriuretic Peptide 1036.6 pg/ml (5-450) H 09/23/18 15:27 Total Protein 6.0 g/dl (6.4-8.2) L 09/26/18 05:30 Albumin 2.5 g/dl (3.4-5.0) L 09/26/18 05:30 Current Medications Generic Name Dose Route Start Last Admin Trade Name Freq PRN Reason Stop Dose Admin Albuterol/Ipratropium 1 amp 09/27/18 14:00 Duoneb - NEB RTID [facility] Heparin Sodium (Porcine) 5,000 unit 04/19/19 22:00 09/27/18 09:56 Heparin - SQ 5,000 unit BID [facility] Administration Levofloxacin 500 mg in 100 mls @ 100 mls/hr 09/25/18 11:15 09/27/18 09:55 Levaquin 500 Mg Premixed Ivpb - IVPB 100 mls/hr DAILY [facility] Administration Protocol Non-Formulary Medication 1 each 09/23/18 22:00 09/27/18 09:55 Carbidopa/Levodopa [Rytary Er 36.25 Mg-145 Mg Cap] PO 1 each QID [facility] Administration Non-Formulary Medication 1 each 09/24/18 10:00 Rotigotine [Neupro] TD DAILY [facility] Quetiapine Fumarate 25 mg 09/23/18 22:00 09/27/18 05:52 Seroquel - PO 25 mg TID [facility] Administration Senna/Docusate Sodium 1 tablet 09/24/18 10:00 09/27/18 09:55 Pericolace - PO 1 tablet DAILY [facility] Administration Constitutional: Yes: No Distress Eyes: Yes: Conjunctiva Clear HENT: Yes: Atraumatic Neck: Yes: Supple Cardiovascular: Yes: Regular Rate and Rhythm Respiratory: Yes: Rhonchi (at right base) Gastrointestinal Inspection: Yes: Scars (healed Pfannensteil incision) ...Auscultate: Yes: Normoactive Bowel Sounds ...Palpate: Yes: Soft, Other (nontender) ...Rectal Exam: Yes: Deferred Labs: CBC, BMP 09/26/18 05:30 09/26/18 05:30 INR, PTT INR 1.28 (0.83-1.09) H 09/23/18 15:20 Problem List - Problems (1) Parkinson's disease Assessment/Plan: Gaby's Parkinson's Disease and dementia appears to have reached the point where she cannot adequately chew and masticate her food or swallow it safely. A G tube would enhance her nutritional input. I have discussed several options with her Azam that include an endoscopic or surgically placed G tube as well as the option of having it placed by IR. After we discussed the need for anesthesia for an endoscopic PEG, Azam has opted for an IR inserted G tube. He understands that this will require a temporary NG tube insertion. Code(s): G20 - PARKINSON'S DISEASE (2) Adult failure to thrive Code(s): R62.7 - ADULT FAILURE TO THRIVE (3) Dementia Code(s): F03.90 - UNSPECIFIED DEMENTIA WITHOUT BEHAVIORAL DISTURBANCE (4) Aspiration into lower respiratory tract Code(s): T17.800A - UNSP FOREIGN BODY IN OTH PRT RESP TRACT CAUSING ASPHYX, INIT (5) Sacral decubitus ulcer, stage IV Code(s): L89.154 - PRESSURE ULCER OF SACRAL REGION, STAGE 4 Assessment/Plan Impression: I agree that Gaby can nutritionally benefit from a G tube. I did explain to Azam that this will not allow passage of a solid tablet, that it requires that the medication be crushed and that not all medications can be crushed. He does not want to subject his to anesthesia given her DNR status. Plan: Please consult IR for G tube insertion if/when deemed appropriate Pureed dysphagia diet trial initiated. Please recall us as needed.
[2018-09-27] MEDS: ALBUTEROL SO4 2.5/IPRATROPIUM 0.5 INH SOL 3 ML VIAL.NEB. NEB SCH ×2 (14:45→19:24)
[2018-09-28] MEDS: QUEtiapine FUMARATE 25 MG TABLET (FP) PO SCH ×3 (06:19→21:00)
[2018-09-28] MEDS: ALBUTEROL SO4 2.5/IPRATROPIUM 0.5 INH SOL 3 ML VIAL.NEB. NEB SCH ×3 (07:25→20:36)
--- NOTE | 2018-09-28 09:55 | PN ---
Progress Note (short form) - Note Progress Note: PULMONARY Pt nonverbal, at bedside considering PEG placement. No fevers recorded. Vital Signs Period Temp Pulse Resp BP Sys/Warner Pulse Ox Last 24 Hr 97.9 F-98.8 F 53-78 20- 80-120/50-68 97-98 Gen: NAD at rest Heart: RRR Lung: scattered rhonchi Abd: soft, nontender Ext: no edema CBC, BMP 09/26/18 05:30 09/26/18 05:30 Active Medications Albuterol/Ipratropium (Duoneb -) 1 amp NEB RTID [facility] Last Admin: 09/28/18 07:25 Dose: 1 amp Heparin Sodium (Porcine) (Heparin -) 5,000 unit SQ BID [facility] Last Admin: 09/27/18 22:14 Dose: 5,000 unit Levofloxacin (Levaquin 500 Mg Premixed Ivpb -) 500 mg in 100 mls @ 100 mls/hr IVPB DAILY [facility]; Protocol Last Admin: 09/27/18 09:55 Dose: 100 mls/hr Non-Formulary Medication (Carbidopa/Levodopa [Rytary Er 36.25 Mg-145 Mg Cap]) 1 each PO QID [facility] Last Admin: 09/27/18 22:22 Dose: 1 each Non-Formulary Medication (Rotigotine [Neupro]) 1 each TD DAILY [facility] Quetiapine Fumarate (Seroquel -) 25 mg PO TID [facility] Last Admin: 09/28/18 06:19 Dose: 25 mg Senna/Docusate Sodium (Pericolace -) 1 tablet PO DAILY [facility] Last Admin: 09/27/18 09:55 Dose: 1 tablet A/P Pneumonia likely aspiration Parkinsons Dementia Sacral Decubitus Ulcer - continue antibiotics - inhaled bronchodilators - O2 to keep SpO2 >90% - aspiration precautions - DVT prophylaxis
[2018-09-28] MEDS: PATIENT'S OWN MEDICATION (NON-FORMULARY) (Carbidopa/Levodopa [Rytary Er 36.25 Mg-145 Mg Ca PO SCH ×2 (10:56→14:47)
[2018-09-28] MEDS: HEPARIN NA (PORCINE) 5,000 UNITS/ML 1ML VIAL SQ SCH ×2 (10:56→21:00)
[2018-09-28] MEDS: SENNOSIDES/DOCUSATE COMBO (SENNA PLUS) TABLET (UD) PO SCH (10:57)
--- NOTE | 2018-09-28 11:43 | PN ---
Progress Note, CLERK CHECKER - Note Progress Note: Selected Entries 09/27/18 09/27/18 09/27/18 02:10 06:31 09:00 Breakfast Lunch Supper Temperature 97.9 F 97.4 F L 97.8 F 09/27/18 09/27/18 09/27/18 16:18 17:35 19:51 Breakfast 50% Lunch 75% Supper 50% Temperature 98.6 F 98.6 F 09/27/18 09/28/18 20:38 06:50 Breakfast Lunch Supper Temperature 97.9 F 98.8 F Laboratory Tests 09/26/18 05:30 WBC 7.3 Pt now on Dys puree/nectar thick liquid. Appreciate GI consult. Pending consideration for PEG by IR Pt's repeated several times his biggest concern that the DNR/DNI stay in affect when PEG is placed. Call placed to Palliative care who will review his wishes. Discussed with Palliative care nurse-Pt's reconsidering his decision regarding TF based on pt's wishes. Pt still with cough after nectar thick liquid. Reviewed with nursing/RD REC: Downgrade to honey thick liquid D/C 2 ele HN.(which is nectar thick)
--- NOTE | 2018-09-28 13:42 | PN ---
Progress Note (short form) - Note Progress Note: Events noted Spoke to does not want pt to get peg tube she ate pureed Vital Signs - 24 hr 09/27/18 09/27/18 09/27/18 16:18 17:35 19:10 Temperature 98.6 F 98.6 F Pulse Rate 78 53 L 59 L Respiratory 22 H 20 Rate Blood Pressure 120/68 80/50 L 100/60 O2 Sat by Pulse Oximetry (%) 09/27/18 09/27/18 09/28/18 20:38 22:00 06:50 Temperature 97.9 F 98.8 F Pulse Rate 60 68 Respiratory 20 Rate Blood Pressure 100/58 L 104/56 L O2 Sat by Pulse 98 Oximetry (%) Current Medications Generic Name Dose Route Start Last Admin Trade Name Freq PRN Reason Stop Dose Admin Albuterol/Ipratropium 1 amp 09/27/18 14:00 09/28/18 07:25 Duoneb - NEB 1 amp RTID [facility] Administration Heparin Sodium (Porcine) 5,000 unit 09/24/18 22:00 09/28/18 10:56 Heparin - SQ 5,000 unit BID [facility] Administration Levofloxacin 500 mg in 100 mls @ 100 mls/hr 09/25/18 11:15 09/28/18 10:56 Levaquin 500 Mg Premixed Ivpb - IVPB 100 mls/hr DAILY [facility] Administration Protocol Non-Formulary Medication 1 each 09/23/18 22:00 09/28/18 10:56 Carbidopa/Levodopa [Rytary Er 36.25 Mg-145 Mg Cap] PO 1 each QID [facility] Administration Non-Formulary Medication 1 each 09/24/18 10:00 Rotigotine [Neupro] TD DAILY [facility] Quetiapine Fumarate 25 mg 09/23/18 22:00 09/28/18 06:19 Seroquel - PO 25 mg TID [facility] Administration Senna/Docusate Sodium 1 tablet 09/24/18 10:00 09/28/18 10:57 Pericolace - PO 1 tablet DAILY [facility] Administration Physical Exam S1 S2 RRR Lungs - diminished at bases abd- soft ext- no edema neuro- awake sacral decubitus PLAN stable continue present care abx will follow f/u cultures swallow eval ESbl precautions abx ?palliative care , considering hospice Problem List - Problems (1) Adult failure to thrive Code(s): R62.7 - ADULT FAILURE TO THRIVE (2) CHF exacerbation Code(s): I50.9 - HEART FAILURE, UNSPECIFIED Qualifiers: Heart failure type: unspecified Qualified Code(s): I50.9 - Heart failure, unspecified (3) Sacral decubitus ulcer, stage IV Code(s): L89.154 - PRESSURE ULCER OF SACRAL REGION, STAGE 4
[2018-09-28] MEDS ORDERED: MINERAL OIL 30 ML UNIT-DOSE CUP PO PRN ×2 (13:49→13:58)
[2018-09-28] MEDS ORDERED: PT OWN MED DRAWER 7, Y5N ONE ×2 (14:43→20:46)
[2018-09-28] MEDS: LEVODOPA PO SCH ×2 (17:37→21:00)
[2018-09-28] MEDS: CARBIDOPA PO SCH ×2 (17:37→21:00)
[2018-09-28] MEDS: [UNRECOGNIZED DRUG - OTHER] PO SCH ×2 (17:37→21:00)
[2018-09-28] MEDS: MINERAL OIL 30 ML UNIT-DOSE CUP PO PRN (21:05)
[2018-09-29] MEDS: QUEtiapine FUMARATE 25 MG TABLET (FP) PO SCH ×3 (05:43→22:31)
[2018-09-29] MEDS: ALBUTEROL SO4 2.5/IPRATROPIUM 0.5 INH SOL 3 ML VIAL.NEB. NEB SCH ×3 (07:39→20:37)
[2018-09-29] MEDS: LEVODOPA PO SCH ×4 (10:48→22:31)
[2018-09-29] MEDS: [UNRECOGNIZED DRUG - OTHER] PO SCH ×4 (10:48→22:31)
[2018-09-29] MEDS: SENNOSIDES/DOCUSATE COMBO (SENNA PLUS) TABLET (UD) PO SCH (10:48)
[2018-09-29] MEDS: CARBIDOPA PO SCH ×4 (10:48→22:31)
[2018-09-29] MEDS: HEPARIN NA (PORCINE) 5,000 UNITS/ML 1ML VIAL SQ SCH ×2 (10:48→22:30)
--- NOTE | 2018-09-29 12:25 | DS ---
Physical Examination Vital Signs: Vital Signs Temperature 97.4 F L 09/29/18 06:45 Pulse Rate 59 L 09/29/18 06:45 Respiratory Rate 20 09/29/18 06:45 Blood Pressure 108/60 09/29/18 06:45 O2 Sat by Pulse Oximetry (%) 93 L 09/28/18 22:00 Constitutional: Yes: No Distress Cardiovascular: Yes: Regular Rate and Rhythm Respiratory: Yes: Diminished Gastrointestinal: Yes: Normal Bowel Sounds, Soft. No: Tenderness, Rebound Edema: No Labs: CBC, BMP 09/26/18 05:30 09/26/18 05:30 Discharge Summary Reason For Visit: ACUTE ON CHRONIC CONGESTIVE HEART FAILURE Current Active Problems Adult failure to thrive (Acute) Aspiration into lower respiratory tract (Acute) CHF exacerbation (Acute) Cough (Acute) Dementia (Acute) Hypoxia (Acute) SOB (shortness of breath) (Acute) Sacral decubitus ulcer, stage IV (Acute) Hospital Course: Pt admitted for pneumonia, sent by PMD Was started on IV Levaquin nebs CT chest noted Evaluated by GI, Neurology, swallow eval family does not wish to have peg tube Pt eating about 50-75% of meals will dc pt home on PO Levaquin x 4 days Will need home care Condition: Stable - Instructions Disposition: HOME - Home Medications Comprehensive Discharge Medication List: Ambulatory Orders Rotigotine [Neupro] 1 each TD DAILY 10/22/15 Sennosides/Docusate Sodium [Stool Softener-Laxative Tab] 1 each PO DAILY Cefuroxime Axetil [Ceftin -] 500 mg PO BID 09/08/18 Quetiapine Fumarate [Seroquel -] 25 mg PO TID 09/23/18 Carbidopa/Levodopa [Rytary ER 23.75 mg-95 mg Cap] 2 each PO QID 09/28/18
--- NOTE | 2018-09-29 13:45 | PN ---
Progress Note (short form) - Note Progress Note: NEUROLOGY PROGRESS: Events reviewed and discussed with JANELL Cross. Case discussed with Manuel and two sons at bedside. Previous to urosepsis, notes was able to eat chopped foods/regular liquids with assistance and maintaining current weight. HHS 12H/day/7days. He notes with assistance of aide, his was able to ambulate and make needs known including use of bathroom, now limited by sacral ulcer. Now diet downgraded to puree, nectar thick with discussion of PEG placement, which notes is not part of his 's wishes. Remains on IV levofloxacin for + ESBL in urine and presumed aspiration pneumonia. ALYSA: BPs 100s/60s. Wound vac in situ. Wearing diaper. Early contractures of R hand, L elbow, L knee. NEURO: Awake, alert, responsive. hypophonic speech. Ox to self. Knows husbands name. Follows simple commands. + glabella, grasps Intermittent rhythmic rest tremor both hands with jaw tremor. + cogwheeling. Reflexes symmetric, except absent AJ's. Feels pinch in all fours. Impression: B/L Cerebral Dysfunction (OMS, chronic) Toxic-Metabolic Encephalopathy (urosepsis, sacral wound, ? aspiration pna) Parkinson's disease Parkinson's disease psychosis Suggest: Aggressive fluid hydration and antibiotics Orthostatic BP's Advise crushed meds in applesauce including opening of Rytary capsule, assist with feeds Bedside PT for mobilization vs. contractures and mobilize patient OOB to chair during meals surgical services director to assist in providing 24/7 HHS for patient Thank you very much, Cristobal Izaguirre MD
[2018-09-29] MEDS ORDERED: PT OWN MED DRAWER 7, Y5N ONE (17:06)
[2018-09-30] MEDS: QUEtiapine FUMARATE 25 MG TABLET (FP) PO SCH ×3 (05:46→21:45)
[2018-09-30] MEDS: ALBUTEROL SO4 2.5/IPRATROPIUM 0.5 INH SOL 3 ML VIAL.NEB. NEB SCH ×3 (07:43→20:20)
[2018-09-30] MEDS: CARBIDOPA PO SCH ×4 (09:48→21:46)
[2018-09-30] MEDS: LEVODOPA PO SCH ×4 (09:48→21:46)
[2018-09-30] MEDS: MINERAL OIL 30 ML UNIT-DOSE CUP PO PRN (09:48)
[2018-09-30] MEDS: [UNRECOGNIZED DRUG - OTHER] PO SCH ×4 (09:48→21:46)
[2018-09-30] MEDS: HEPARIN NA (PORCINE) 5,000 UNITS/ML 1ML VIAL SQ SCH ×2 (10:02→21:45)
[2018-09-30] MEDS: SENNOSIDES/DOCUSATE COMBO (SENNA PLUS) TABLET (UD) PO SCH (10:02)
--- NOTE | 2018-09-30 11:30 | PN ---
Progress Note (short form) - Note Progress Note: PULMONARY Pt nonverbal, no fevers recorded. Vital Signs Period Temp Pulse Resp BP Sys/Warner Pulse Ox Last 24 Hr 98 F-99.6 F 64-78 18-20 106-120/64-69 Gen: NAD at rest Heart: RRR Lung: scattered rhonchi Abd: soft, nontender Ext: no edema CBC, BMP 09/26/18 05:30 09/26/18 05:30 Active Medications Albuterol/Ipratropium (Duoneb -) 1 amp NEB RTID [facility] Last Admin: 09/30/18 07:43 Dose: 1 amp Heparin Sodium (Porcine) (Heparin -) 5,000 unit SQ BID [facility] Last Admin: 09/30/18 10:02 Dose: 5,000 unit Levofloxacin (Levaquin 500 Mg Premixed Ivpb -) 500 mg in 100 mls @ 100 mls/hr IVPB DAILY [facility]; Protocol Last Admin: 09/30/18 09:49 Dose: 100 mls/hr Mineral Oil (Mineral Oil -) 30 ml PO Q8H PRN PRN Reason: FOR DRY MOUTH Last Admin: 09/30/18 09:48 Dose: 30 ml Non-Formulary Medication (Rotigotine [Neupro]) 1 each TD DAILY [facility] Patient's Own Medication (Non- Formulary) ( Carbidopa/Levodopa [ Rytary Er 23.75 Mg- 95 Mg Ca 2 each PO QID [facility] Last Admin: 09/30/18 09:48 Dose: 2 each Quetiapine Fumarate (Seroquel -) 25 mg PO TID [facility] Last Admin: 09/30/18 05:46 Dose: 25 mg Senna/Docusate Sodium (Pericolace -) 1 tablet PO DAILY [facility] Last Admin: 09/30/18 10:02 Dose: 1 tablet A/P Pneumonia likely aspiration Parkinsons Dementia Sacral Decubitus Ulcer - continue antibiotics - inhaled bronchodilators - O2 to keep SpO2 >90% - aspiration precautions - DVT prophylaxis - d/c planning
--- NOTE | 2018-09-30 12:01 | PN ---
Progress Note, FORECLOSURE SPECIALIST - Note Progress Note: Selected Entries 09/29/18 09/29/18 09/29/18 06:32 06:45 17:14 Supper Temperature 97.4 F L 97.4 F L 98.4 F 09/29/18 09/29/18 09/30/18 19:04 21:00 06:45 Supper 50% Temperature 98 F 99.6 F Laboratory Tests 09/26/18 05:30 WBC 7.3 Pt on puree/honey thick liquid with slow acceptance. Pending d/c home. Suggest-RD f/u regarding family education-diet order to continue upon d/c
--- NOTE | 2018-09-30 13:38 | PN ---
Progress Note (short form) - Note Progress Note: Events noted Spoke to does not want pt to get peg tube she ate pureed diet - no difficulty Vital Signs - 24 hr 09/29/18 09/29/18 09/30/18 17:14 21:00 06:45 Temperature 98.4 F 98 F 99.6 F Pulse Rate 70 78 64 Respiratory 20 18 20 Rate Blood Pressure 115/69 120/65 106/64 Current Medications Generic Name Dose Route Start Last Admin Trade Name Freq PRN Reason Stop Dose Admin Albuterol/Ipratropium 1 amp 09/27/18 14:00 09/30/18 07:43 Duoneb - NEB 1 amp RTID [facility] Administration Heparin Sodium (Porcine) 5,000 unit 09/24/18 22:00 09/30/18 10:02 Heparin - SQ 5,000 unit BID [facility] Administration Levofloxacin 500 mg in 100 mls @ 100 mls/hr 09/25/18 11:15 09/30/18 09:49 Levaquin 500 Mg Premixed Ivpb - IVPB 100 mls/hr DAILY [facility] Administration Protocol Mineral Oil 30 ml 09/28/18 15:41 09/30/18 09:48 Mineral Oil - PO 30 ml Q8H PRN Administration FOR DRY MOUTH Non-Formulary Medication 1 each 09/24/18 10:00 Rotigotine [Neupro] TD DAILY [facility] Patient's Own 2 each 09/28/18 18:00 09/30/18 09:48 Medication (Non- PO 2 each Formulary) ( QID [facility] Administration Carbidopa/Levodopa [ Rytary Er 23.75 Mg- 95 Mg Ca Quetiapine Fumarate 25 mg 09/23/18 22:00 09/30/18 05:46 Seroquel - PO 25 mg TID [facility] Administration Senna/Docusate Sodium 1 tablet 09/24/18 10:00 09/30/18 10:02 Pericolace - PO 1 tablet DAILY [facility] Administration Physical Exam S1 S2 RRR Lungs - diminished at bases abd- soft ext- no edema neuro- awake sacral decubitus PLAN stable continue present care abx-- > changed to PO will need DIETITIAN ASSISTANT /VNS at home is not sure about hospice at home dc plan today on PO antibiotics and encourage to drink fluids wound care with wound vac Problem List - Problems (1) Adult failure to thrive Code(s): R62.7 - ADULT FAILURE TO THRIVE (2) CHF exacerbation Code(s): I50.9 - HEART FAILURE, UNSPECIFIED Qualifiers: Heart failure type: unspecified Qualified Code(s): I50.9 - Heart failure, unspecified (3) Sacral decubitus ulcer, stage IV Code(s): L89.154 - PRESSURE ULCER OF [place] REG[place], STAGE 4
[2018-10-01] MEDS: QUEtiapine FUMARATE 25 MG TABLET (FP) PO SCH ×3 (05:38→22:18)
[2018-10-01] MEDS: ALBUTEROL SO4 2.5/IPRATROPIUM 0.5 INH SOL 3 ML VIAL.NEB. NEB SCH ×3 (07:35→20:59)
[2018-10-01] MEDS ORDERED: PT OWN MED DRAWER 7, Y5N ONE ×3 (09:54→10:09)
[2018-10-01] MEDS: HEPARIN NA (PORCINE) 5,000 UNITS/ML 1ML VIAL SQ SCH (09:58)
[2018-10-01] MEDS: SENNOSIDES/DOCUSATE COMBO (SENNA PLUS) TABLET (UD) PO SCH (09:58)
[2018-10-01] MEDS: CARBIDOPA PO SCH ×4 (09:59→22:18)
[2018-10-01] MEDS: [UNRECOGNIZED DRUG - OTHER] PO SCH ×4 (09:59→22:18)
[2018-10-01] MEDS: LEVODOPA PO SCH ×4 (09:59→22:18)
--- NOTE | 2018-10-01 10:48 | PN ---
Progress Note (short form) - Note Progress Note: pt seen/ examined chart reviewed awake/ comfortable Vital Signs Temp 99.1 F 10/01/18 06:00 Pulse 69 10/01/18 06:00 Resp 20 10/01/18 06:00 BP 153/72 10/01/18 06:00 Pulse Ox 93 L 09/28/18 22:00 Intake & Output 09/30/18 09/30/18 10/01/18 11:59 23:59 11:59 Intake Total 30 Balance 30 Weight 121 lb 9 oz 131 lb 6.4 oz Intake: Oral 30 Other: Voiding Method Diaper # Unmeasured Voids Void 1 1 1 Bowel Movement Yes: 1 Yes # Bowel Movements 1 Weight Measurement Method Built in Bedscale Built in Bedscale Active Medications Albuterol/Ipratropium (Duoneb -) 1 amp NEB RTID [facility] Last Admin: 10/01/18 07:35 Dose: 1 amp Heparin Sodium (Porcine) (Heparin -) 5,000 unit SQ BID [facility] Last Admin: 10/01/18 09:58 Dose: 5,000 unit Levofloxacin (Levaquin 500 Mg Premixed Ivpb -) 500 mg in 100 mls @ 100 mls/hr IVPB DAILY [facility]; Protocol Last Admin: 10/01/18 09:59 Dose: 100 mls/hr Mineral Oil (Mineral Oil -) 30 ml PO Q8H PRN PRN Reason: FOR DRY MOUTH Last Admin: 09/30/18 09:48 Dose: 30 ml Non-Formulary Medication (Rotigotine [Neupro]) 1 each TD DAILY [facility] Patient's Own Medication (Non- Formulary) ( Carbidopa/Levodopa [ Rytary Er 23.75 Mg- 95 Mg Ca 2 each PO QID [facility] Last Admin: 10/01/18 09:59 Dose: 2 each Quetiapine Fumarate (Seroquel -) 25 mg PO TID [facility] Last Admin: 10/01/18 05:38 Dose: 25 mg Senna/Docusate Sodium (Pericolace -) 1 tablet PO DAILY [facility] Last Admin: 10/01/18 09:58 Dose: 1 tablet CBC, BMP 09/26/18 05:30 09/26/18 05:30 Physical Exam awake/ comfortable S1 S2 RRR Lungs - diminished at bases abd- soft ext- no edema neuro- awake sacral decubitus PLAN stable continue present care abx-- d/c after today dose will need ASSEMBLER CARDS AND ANNOUNCEMENTS /VNS at home-- need 24 hour care vs shelter Discussed with flow manager also as well as pt son -- who is upset with d/c orders I explained at this time she dont need further hospitalization He is requesting 24 hour care help -- which i agree family has filed appeal will follow Problem List - Problems (1) Sacral decubitus ulcer, stage IV Code(s): L89.154 - PRESSURE ULCER OF [place], STAGE 4 (2) Cough Code(s): R05 - COUGH (3) SOB (shortness of breath) Code(s): R06.02 - SHORTNESS OF BREATH (4) Parkinson's disease Code(s): G20 - PARKINSON'S DISEASE
--- NOTE | 2018-10-01 14:22 | PN ---
Progress Note (short form) - Note Progress Note: PULMONARY Appears lethargic Application for [place] submitted by systems planner Constitutional: Yes: Anxious Eyes: Yes: Conjunctiva Clear HENT: Yes: Normocephalic Neck: Yes: Trachea Midline Cardiovascular: Yes: Regular Rate and Rhythm, S1, S2 Respiratory: Yes: Poor Air Entry, Rales, Rhonchi Gastrointestinal: Yes: Normal Bowel Sounds, Soft Musculoskeletal: Yes: Muscle Weakness Edema: No Neurological: Yes: Oriented, Pre-Existing Deficit Labs/meds/notes/images reviewed (1) Aspiration into lower respiratory tract Code(s): T17.800A - UNSP FOREIGN BODY IN OTH PRT RESP TRACT CAUSING ASPHYX, INIT (2) Cough Code(s): R05 - COUGH (3) Hypoxia Code(s): R09.02 - HYPOXEMIA (4) SOB (shortness of breath) Code(s): R06.02 - SHORTNESS OF BREATH (5) Sacral decubitus ulcer, stage IV Code(s): L89.154 - PRESSURE ULCER OF [place], STAGE 4 (6) Parkinson's disease Code(s): G20 - PARKINSON'S DISEASE Assessment/Plan GIVEN ADVANCED STAGE OF PARKINSONS AND UNDERLYING DEBILITATION CALVARY WOULD BE APPROPRIATE PLEASE CALL NEEDED Trenton DAVALOS MD Problem List - Problems (1) Aspiration into lower respiratory tract Code(s): T17.800A - UNSP FOREIGN BODY IN OTH PRT RESP TRACT CAUSING ASPHYX, INIT (2) Cough Code(s): R05 - COUGH (3) Hypoxia Code(s): R09.02 - HYPOXEMIA (4) SOB (shortness of breath) Code(s): R06.02 - SHORTNESS OF BREATH (5) Sacral decubitus ulcer, stage IV Code(s): L89.154 - PRESSURE ULCER OF [place] REG[place], STAGE 4 (6) Parkinson's disease Code(s): G20 - PARKINSON'S DISEASE
--- NOTE | 2018-10-01 19:51 | CONSULT ---
Consult - text type - Consultation Consultation Note: NEUROLOGY FOLLOW-UP: Events reviewed and discussed with and son at the bedside. Pt is intermittently lethargic/sleeping. Ate lunch with less difficulty but struggling with dinner. Still coughing after feeding. On Rytary 95x2= 180 q4hr @, 7, 11, 3 and 7 Nuplazid 34 mg q AM ( notes decreased hallucinations) Quetiapine 25 mg TID Pt is NOT on Neupro patch. EXAM: Lethargic but arousable. Can't give "hospital", month or year. Masked facies. Decreased gag Rigid with cogwheeling. IMP: Advanced PD OMS Parkinson's disease Psychosis. Suggest: Continue hydration, current PD regimen Add Carbidopa/levadopa 25/100 to each rytary dose, and observe for improved swallow. Feed patient only upright and OOB in chair if possiible Thank you very much, Cristobal Izaguirre MD
[2018-10-02] MEDS: CARBIDOPA/LEVODOPA 25/100 TABLET (FP) PO SCH ×4 (06:00→17:27)
[2018-10-02] MEDS: ALBUTEROL SO4 2.5/IPRATROPIUM 0.5 INH SOL 3 ML VIAL.NEB. NEB SCH (08:02)
[2018-10-02] MEDS: SENNOSIDES/DOCUSATE COMBO (SENNA PLUS) TABLET (UD) PO SCH (10:01)
[2018-10-02] MEDS: LEVODOPA PO SCH ×4 (10:01→21:31)
[2018-10-02] MEDS: [UNRECOGNIZED DRUG - OTHER] PO SCH ×4 (10:01→21:31)
[2018-10-02] MEDS: CARBIDOPA PO SCH ×4 (10:01→21:31)
--- NOTE | 2018-10-02 10:10 | PN ---
Progress Note (short form) - Note Progress Note: No change in overall clinical status. Nonverbal. No acute events overnight. Intake & Output 09/29/18 09/30/18 10/01/18 10/02/18 23:59 23:59 23:59 23:59 Intake Total 10 30 660 0 Balance 10 30 660 0 Weight 133 lb 4 oz 121 lb 9 oz 131 lb 6.4 oz 119 lb 2 oz Last Vital Signs Temp Pulse Resp BP Pulse Ox 97.9 F 75 18 109/66 96 10/02/18 06:12 10/02/18 06:12 10/02/18 06:12 10/02/18 06:12 10/01/18 22:00 Active Medications Albuterol/Ipratropium (Duoneb -) 1 amp NEB RTID [facility] Last Admin: 10/02/18 08:02 Dose: 1 amp Carbidopa/Levodopa (Sinemet 25/100 -) 1 each PO 0600,1000,1400,1800 [facility] Last Admin: 10/02/18 10:02 Dose: 1 each Mineral Oil (Mineral Oil -) 30 ml PO Q8H PRN PRN Reason: FOR DRY MOUTH Last Admin: 09/30/18 09:48 Dose: 30 ml Patient's Own Medication (Non- Formulary) ( Carbidopa/Levodopa [ Rytary Er 23.75 Mg- 95 Mg Ca 2 each PO QID [facility] Last Admin: 10/02/18 10:01 Dose: 2 each Quetiapine Fumarate (Seroquel -) 25 mg PO HS [facility] Last Admin: 10/01/18 22:18 Dose: 25 mg Senna/Docusate Sodium (Pericolace -) 1 tablet PO DAILY [facility] Last Admin: 10/02/18 10:01 Dose: 1 tablet Gen: NAD at rest Heart: RRR Lung: scattered rhonchi Abd: soft, nontender Ext: no edema A/P Pneumonia likely aspiration Parkinsons Dementia Sacral Decubitus Ulcer - ABX completed - inhaled bronchodilators - O2 to keep SpO2 >90% - aspiration precautions - DVT prophylaxis - d/c planning Dr Mckeznie
--- NOTE | 2018-10-02 10:51 | PN ---
Progress Note (short form) - Note Progress Note: Events noted Spoke to awaiting bed in [facility] she ate pureed diet - no difficulty Vital Signs - 24 hr 10/01/18 10/01/18 10/01/18 15:27 21:00 22:00 Temperature 98.0 F Pulse Rate 68 Respiratory 20 20 Rate Blood Pressure 90/53 L O2 Sat by Pulse 96 96 Oximetry (%) 10/01/18 10/02/18 10/02/18 23:00 03:00 06:12 Temperature 98.5 F 98 F 97.9 F Pulse Rate 72 82 75 Respiratory 20 18 18 Rate Blood Pressure 105/61 111/65 109/66 O2 Sat by Pulse Oximetry (%) Current Medications Generic Name Dose Route Start Last Admin Trade Name Freq PRN Reason Stop Dose Admin Albuterol/Ipratropium 1 amp 09/27/18 14:00 10/02/18 08:02 Duoneb - NEB 1 amp RTID [facility] Administration Carbidopa/Levodopa 1 each 10/02/18 06:00 10/02/18 10:02 Sinemet 25/100 - PO 1 each 0600,1000,1400,1800 [facility] Administration Mineral Oil 30 ml 09/28/18 15:41 09/30/18 09:48 Mineral Oil - PO 30 ml Q8H PRN Administration FOR DRY MOUTH Patient's Own 2 each 09/28/18 18:00 10/02/18 10:01 Medication (Non- PO 2 each Formulary) ( QID [facility] Administration Carbidopa/Levodopa [ Rytary Er 23.75 Mg- 95 Mg Ca Quetiapine Fumarate 25 mg 10/01/18 22:00 10/01/18 22:18 Seroquel - PO 25 mg HS [facility] Administration Senna/Docusate Sodium 1 tablet 09/24/18 10:00 10/02/18 10:01 Pericolace - PO 1 tablet DAILY [facility] Administration S1 S2 RRR Lungs - diminished at bases abd- soft ext- no edema neuro- awake sacral decubitus PLAN stable continue present care abx-- completed needs 24 hr care-- pt awaiting bed in [facility] wound care with wound vac Problem List - Problems (1) Adult failure to thrive Code(s): R62.7 - ADULT FAILURE TO THRIVE (2) CHF exacerbation Code(s): I50.9 - HEART FAILURE, UNSPECIFIED Qualifiers: Heart failure type: unspecified Qualified Code(s): I50.9 - Heart failure, unspecified (3) Sacral decubitus ulcer, stage IV Code(s): L89.154 - PRESSURE ULCER OF [place], STAGE 4
[2018-10-02] MEDS ORDERED: PT OWN MED DRAWER 7, Y5N ONE (11:14)
[2018-10-02] MEDS: QUEtiapine FUMARATE 25 MG TABLET (FP) PO SCH (21:31)
[2018-10-03] MEDS: CARBIDOPA/LEVODOPA 25/100 TABLET (FP) PO SCH ×4 (06:42→18:39)
[2018-10-03] MEDS ORDERED: PT OWN MED DRAWER 7, Y5N ONE ×3 (06:58→18:07)
[2018-10-03] MEDS ORDERED: INSULIN (NOVOLOG MIX 70/30) 100 UNITS/ML MDV SQ ONE (07:57)
--- NOTE | 2018-10-03 10:00 | PN ---
Progress Note (short form) - Note Progress Note: Events noted Spoke to awaiting bed in [facility] she ate pureed diet - no difficulty Vital Signs - 24 hr 10/02/18 10/02/18 10/02/18 21:00 21:24 21:39 Temperature 98.5 F Pulse Rate 64 Respiratory 20 20 Rate Blood Pressure 110/60 O2 Sat by Pulse 96 96 Oximetry (%) 10/03/18 10/03/18 10/03/18 06:54 10:45 14:15 Temperature 97.6 F 98.6 F 97.7 F Pulse Rate 78 56 L 68 Respiratory 20 20 18 Rate Blood Pressure 130/72 120/70 128/47 L O2 Sat by Pulse Oximetry (%) 10/03/18 16:54 Temperature 98 F Pulse Rate 67 Respiratory 20 Rate Blood Pressure 98/46 L O2 Sat by Pulse Oximetry (%) Current Medications Generic Name Dose Route Start Last Admin Trade Name Freq PRN Reason Stop Dose Admin Carbidopa/Levodopa 1 each 10/02/18 06:00 10/03/18 18:39 Sinemet 25/100 - PO 1 each 0600,1000,1400,1800 [facility] Administration Mineral Oil 30 ml 09/28/18 15:41 09/30/18 09:48 Mineral Oil - PO 30 ml Q8H PRN Administration FOR DRY MOUTH Patient's Own 2 each 09/28/18 18:00 10/03/18 18:01 Medication (Non- PO 2 each Formulary) ( QID [facility] Administration Carbidopa/Levodopa [ Rytary Er 23.75 Mg- 95 Mg Ca Quetiapine Fumarate 25 mg 10/01/18 22:00 10/02/18 21:31 Seroquel - PO 25 mg HS [facility] Administration Senna/Docusate Sodium 1 tablet 09/24/18 10:00 10/03/18 10:42 Pericolace - PO 1 tablet DAILY [facility] Administration S1 S2 RRR Lungs - diminished at bases abd- soft ext- no edema neuro- awake sacral decubitus PLAN stable continue present care abx-- completed needs 24 hr care-- pt awaiting bed in [facility] wound care with wound vac Problem List - Problems (1) Adult failure to thrive Code(s): R62.7 - ADULT FAILURE TO THRIVE (2) CHF exacerbation Code(s): I50.9 - HEART FAILURE, UNSPECIFIED Qualifiers: Heart failure type: unspecified Qualified Code(s): I50.9 - Heart failure, unspecified (3) Sacral decubitus ulcer, stage IV Code(s): L89.154 - PRESSURE ULCER OF [place] REG[place], STAGE 4
[2018-10-03] MEDS: CARBIDOPA PO SCH ×4 (10:42→22:01)
[2018-10-03] MEDS: SENNOSIDES/DOCUSATE COMBO (SENNA PLUS) TABLET (UD) PO SCH (10:42)
[2018-10-03] MEDS: LEVODOPA PO SCH ×4 (10:42→22:01)
[2018-10-03] MEDS: [UNRECOGNIZED DRUG - OTHER] PO SCH ×4 (10:42→22:01)
--- NOTE | 2018-10-03 10:47 | PN ---
Progress Note (short form) - Note Progress Note: No change in overall clinical status. Nonverbal. No acute events overnight. Intake & Output 09/30/18 10/01/18 10/02/18 10/03/18 23:59 23:59 23:59 23:59 Intake Total 30 660 400 Balance 30 660 400 Weight 121 lb 9 oz 131 lb 6.4 oz 119 lb 2 oz 117 lb 6 oz Last Vital Signs Temp Pulse Resp BP Pulse Ox 97.6 F 78 20 130/72 96 10/03/18 06:54 10/03/18 06:54 10/03/18 06:54 10/03/18 06:54 10/02/18 21:39 Active Medications Carbidopa/Levodopa (Sinemet 25/100 -) 1 each PO 0600,1000,1400,1800 [facility] Last Admin: 10/03/18 10:43 Dose: 1 each Mineral Oil (Mineral Oil -) 30 ml PO Q8H PRN PRN Reason: FOR DRY MOUTH Last Admin: 09/30/18 09:48 Dose: 30 ml Patient's Own Medication (Non- Formulary) ( Carbidopa/Levodopa [ Rytary Er 23.75 Mg- 95 Mg Ca 2 each PO QID [facility] Last Admin: 10/03/18 10:42 Dose: 2 each Quetiapine Fumarate (Seroquel -) 25 mg PO HS [facility] Last Admin: 10/02/18 21:31 Dose: 25 mg Senna/Docusate Sodium (Pericolace -) 1 tablet PO DAILY [facility] Last Admin: 10/03/18 10:42 Dose: 1 tablet Gen: NAD at rest on NC O2 Heart: RRR Lung: scattered rhonchi Abd: soft, nontender Ext: no edema A/P Pneumonia likely aspiration Parkinsons Dementia Sacral Decubitus Ulcer - ABX completed - inhaled bronchodilators - O2 to keep SpO2 >90% - aspiration precautions - DVT prophylaxis - d/c planning Dr Mckenzie
[2018-10-03] MEDS: QUEtiapine FUMARATE 25 MG TABLET (FP) PO SCH (22:01)
[2018-10-04] MEDS ORDERED: PT OWN MED DRAWER 7, Y5N ONE ×2 (06:08→09:23)
[2018-10-04] MEDS: CARBIDOPA/LEVODOPA 25/100 TABLET (FP) PO SCH ×2 (06:09→11:19)
--- NOTE | 2018-10-04 10:08 | PN ---
Progress Note (short form) - Note Progress Note: pt seen/ examined no new issues comfortable Vital Signs Temp 97.8 F 10/04/18 06:00 Pulse 53 L 10/04/18 06:00 Resp 18 10/04/18 06:00 BP 127/68 10/04/18 06:00 Pulse Ox 96 10/03/18 22:00 Intake & Output 10/03/18 10/03/18 10/04/18 11:59 23:59 11:59 Intake Total 500 50 Balance 500 50 Weight 117 lb 6 oz 115 lb 11.2 oz Intake: Oral 500 50 Other: Voiding Method Incontinent Incontinent # Unmeasured Voids Void 2 1 Weight Measurement Method Built in Bedscale Built in Bedscale Active Medications Carbidopa/Levodopa (Sinemet 25/100 -) 1 each PO 0600,1000,1400,1800 [facility] Last Admin: 10/04/18 06:09 Dose: 1 each Mineral Oil (Mineral Oil -) 30 ml PO Q8H PRN PRN Reason: FOR DRY MOUTH Last Admin: 09/30/18 09:48 Dose: 30 ml Patient's Own Medication (Non- Formulary) ( Carbidopa/Levodopa [ Rytary Er 23.75 Mg- 95 Mg Ca 2 each PO QID [facility] Last Admin: 10/03/18 22:01 Dose: 2 each Quetiapine Fumarate (Seroquel -) 25 mg PO HS [facility] Last Admin: 10/03/18 22:01 Dose: 25 mg Senna/Docusate Sodium (Pericolace -) 1 tablet PO DAILY [facility] Last Admin: 10/03/18 10:42 Dose: 1 tablet CBC, BMP 09/26/18 05:30 09/26/18 05:30 Physical Exam comfortable S1 S2 RRR Lungs - diminished at bases abd- soft ext- no edema neuro- awake sacral decubitus-- vac in place PLAN stable continue present care abx-- completed needs 24 hr care-- pt awaiting bed in [facility] wound care with wound vac Discussed with Senior Principal-- Bed available today Anticipate d/c today. Discussed with nursing staff also Problem List - Problems (1) Sacral decubitus ulcer, stage IV Code(s): L89.154 - PRESSURE ULCER OF [place] REG[place], STAGE 4 (2) Cough Code(s): R05 - COUGH (3) SOB (shortness of breath) Code(s): R06.02 - SHORTNESS OF BREATH (4) Parkinson's disease Code(s): G20 - PARKINSON'S DISEASE
[2018-10-04] MEDS: [UNRECOGNIZED DRUG - OTHER] PO SCH (10:54)
[2018-10-04] MEDS: SENNOSIDES/DOCUSATE COMBO (SENNA PLUS) TABLET (UD) PO SCH (10:54)
[2018-10-04] MEDS: CARBIDOPA PO SCH (10:54)
[2018-10-04] MEDS: LEVODOPA PO SCH (10:54)
[2018-10-04 13:32] VITALS: BP 110/70; PULSE 69; TEMP 98.7
== END 2018-10-04 12:15 | disposition home or self-care (01) | DRG 177 ==
LOC: JER 13:54 → JERBED 14:09 → J4W 09-24 00:10 → J8W 09-26 17:38 → OBSVTOIN 09-28 14:09
PROVIDERS: ADMIT Internal Medicine; ATTEND Internal Medicine
DX: J69.0 Pneumonitis due to inhalation of food and vomit (principal); L89.154 Pressure ulcer of sacral region, stage 4; G93.41 Metabolic encephalopathy; Z68.1 Body mass index [BMI] 19.9 or less, adult; N39.0 Urinary tract infection, site not specified; J98.11 Atelectasis; G20 Parkinson's disease; F02.80 Dementia in other diseases classified elsewhere, unspecified severity, without behavioral disturbance, psychotic disturbance, mood disturbance, and anxiety; R62.7 Adult failure to thrive; R09.02 Hypoxemia; R06.02 Shortness of breath; I50.9 Heart failure, unspecified; Z74.01 Bed confinement status; Z96.643 Presence of artificial hip joint, bilateral
CPT/HCPCS: 36415; 71045-TC-FY; 71275-TC; 80048; 80053; 81003; 82962; 83605; 83880; 84484; 85025; 85379; 85610; 85730; 87040; 87086; 87186; 87804; 93005; 93010; 93306-TC; 94640; 99285-25; G0378; J1644